=== PATIENT | female | born 1980 | race Caucasian/White ===

== ENCOUNTER → 2019-05-12 14:06 | Outpatient (BNVA) | payer MEDICAID, SELFPAY | PROVIDERS: Family Provider Registered Nurse; PCP Registered Nurse; Visit Provider Obstetrics & Gynecology | DX: O09.92 Supervision of high risk pregnancy, unspecified, second trimester (principal); O09.892 Supervision of other high risk pregnancies, second trimester; O24.112 Pre-existing type 2 diabetes mellitus, in pregnancy, second trimester; O10.012 Pre-existing essential hypertension complicating pregnancy, second trimester; O99.342 Other mental disorders complicating pregnancy, second trimester; O09.522 Supervision of elderly multigravida, second trimester; O99.212 Obesity complicating pregnancy, second trimester; O99.89 Other specified diseases and conditions complicating pregnancy, childbirth and the puerperium; Z28.3 Underimmunization status | CPT/HCPCS: 81000 ==

== ENCOUNTER → 2019-06-09 10:00 | Outpatient (BNVA) | payer MEDICAID, SELFPAY | PROVIDERS: Family Provider Registered Nurse; PCP Registered Nurse; Visit Provider Obstetrics & Gynecology | DX: O24.113 Pre-existing type 2 diabetes mellitus, in pregnancy, third trimester (principal); O09.893 Supervision of other high risk pregnancies, third trimester; Z3A.28 28 weeks gestation of pregnancy | CPT/HCPCS: 83036; 84315; 85027; 86850 ==

== ENCOUNTER → 2019-06-27 09:44 | Outpatient (BNVA) | payer MEDICAID, SELFPAY | PROVIDERS: Family Provider Registered Nurse; PCP Registered Nurse; Referring Provider Obstetrics & Gynecology; Visit Provider Obstetrics & Gynecology | DX: O24.913 Unspecified diabetes mellitus in pregnancy, third trimester (principal); Z36.9 Encounter for antenatal screening, unspecified; Z3A.31 31 weeks gestation of pregnancy | CPT/HCPCS: 76816; 76819 ==

== ENCOUNTER → 2019-06-30 14:22 | Outpatient (BNVA) | payer MEDICAID, SELFPAY | PROVIDERS: Family Provider Registered Nurse; PCP Registered Nurse; Visit Provider Obstetrics & Gynecology | DX: O24.414 Gestational diabetes mellitus in pregnancy, insulin controlled (principal); O16.3 Unspecified maternal hypertension, third trimester; Z3A.31 31 weeks gestation of pregnancy | CPT/HCPCS: 76816; 76819 ==

== ENCOUNTER → 2019-07-04 10:41 | Outpatient (BNVA) | payer MEDICAID, SELFPAY | PROVIDERS: Family Provider Registered Nurse; PCP Registered Nurse; Visit Provider Obstetrics & Gynecology | DX: O09.893 Supervision of other high risk pregnancies, third trimester (principal); O24.414 Gestational diabetes mellitus in pregnancy, insulin controlled; O10.913 Unspecified pre-existing hypertension complicating pregnancy, third trimester; O99.343 Other mental disorders complicating pregnancy, third trimester; O99.213 Obesity complicating pregnancy, third trimester; O09.523 Supervision of elderly multigravida, third trimester; O98.113 Syphilis complicating pregnancy, third trimester; J45.909 Unspecified asthma, uncomplicated; Z3A.31 31 weeks gestation of pregnancy | CPT/HCPCS: 76816; 76819 ==

== ENCOUNTER → 2019-07-07 13:38 | Outpatient (BNVA) | payer MEDICAID, SELFPAY | PROVIDERS: Family Provider Registered Nurse; PCP Registered Nurse; Visit Provider Obstetrics & Gynecology | DX: O09.893 Supervision of other high risk pregnancies, third trimester (principal); O24.913 Unspecified diabetes mellitus in pregnancy, third trimester | CPT/HCPCS: 76816; 76819; 84315 ==

== ENCOUNTER → 2019-07-11 13:50 | Outpatient (BNVA) | payer MEDICAID, SELFPAY | PROVIDERS: Family Provider Registered Nurse; PCP Registered Nurse; Visit Provider Obstetrics & Gynecology | DX: O09.893 Supervision of other high risk pregnancies, third trimester (principal); O24.419 Gestational diabetes mellitus in pregnancy, unspecified control | CPT/HCPCS: 76816; 76819 ==

== ENCOUNTER → 2019-07-14 14:08 | Outpatient (BNVA) | payer MEDICAID, SELFPAY | PROVIDERS: Family Provider Registered Nurse; PCP Registered Nurse; Visit Provider Obstetrics & Gynecology | DX: O09.893 Supervision of other high risk pregnancies, third trimester (principal); O24.119 Pre-existing type 2 diabetes mellitus, in pregnancy, unspecified trimester; E11.9 Type 2 diabetes mellitus without complications | CPT/HCPCS: 76816; 76819 ==

== ENCOUNTER 2019-07-17 01:14 | Observation (INO) | payer MEDICAID, SELFPAY ==
[2019-07-16] VITALS (7 sets, daily range): BP systolic 140–158; BP diastolic 74–86; PULSE 94–102; RESP 18; TEMP 36.6; BMI 38.1
[2019-07-16 22:54] LABS: Urine Appearance Clear (CLEAR); Urine Color Yellow (Yellow); pH Urine 6 (5-7)
[2019-07-16 22:55] LABS: Bacteria Urine 1+; Bilirubin Urine Neg (NEGATIVE); Blood Urine Neg (Negative); Glucose Urine UA Norm (Normal); Ketones Urine Negative (Negative); Leukocyte Esterase Urine Negative (Negative); Nitrate Urine Negative (Negative); Protein Urine Neg (Negative); RBC Urine 0-4 /hpf (0-2); Squamous Epithelial Cell Urine 0-4 (0-5); Urobilinogen Urine Norm (Negative); WBC Urine 0-4 /hpf (0-5)
[2019-07-16] MEDS: acetaminophen 500 mg Tablet 1000 MG PO (23:49)
[2019-07-17] VITALS (23 sets, daily range): BP systolic 108–159; BP diastolic 60–90; PULSE 91–120; RESP 18–20; TEMP 36.6–36.7
[2019-07-17 01:18] LABS: Basophils % 0.2 %; Eosinophils # 0.2 10^3/uL (0.0-0.8); Eosinophils % 1.1 %; Hematocrit 36.9 % (37.0-47.0); Hemoglobin 12.5 g/dL (11.5-15.3); Lymphocytes # 4.1 10^3/uL (0.8-4.8); Mean Corpuscular HGB Conc 33.9 g/dL (30.0-36.0); Mean Corpuscular Volume 88.7 fL (81-99); Mean Platelet Volume 11.4 fL (7.4-10.4); Monocytes # 0.6 10^3/uL (0.2-0.9); Monocytes % 4.4 %; Neutrophils # 9.2 10^3/uL (1.8-7.7); Neutrophils % 64.7 %; Nucleated Red Blood Cells % 0 %; Platelet Count 207 10^3/cmm (130-400); Red Blood Count 4.16 10^6/uL (4.1-5.3); Red Cell Distribution Width 12.7 % (12.1-15.1); White Blood Count 14.2 10^3/uL (4.0-10.0)
[2019-07-17 01:22] LABS: Urine Creatinine 115 mg/dL (28-217); Urine Protein Random 19 mg/dL
[2019-07-17 01:31] LABS: Alanine Aminotransferase 17 U/L (0-33); Albumin Level 3.2 g/dL (3.5-5.2); Alkaline Phosphatase 166 IU/L (35-105); Anion Gap 12.9 (5-19); Aspartate Amino Transferase 16 U/L (0-32); Blood Urea Nitrogen 12 mg/dL (6-20); Calcium 9.5 mg/dL (8.5-10.5); Carbon Dioxide 24 mmol/L (22-29); Chloride 103 mmol/L (98-107); Globulin 3.9 g/dL (1.3-4.6); Glomerular Filtration Rate 112.5 mL/min (90-130); Glucose 125 mg/dL (65-115); Osmolality Calculated 280 mOsm/kg (285-295); Potassium 3.9 mmol/L (3.5-5.1); Sodium 136 mmol/L (136-145); Total Bilirubin 0.2 mg/dL (0.15-1.2); Total Protein 7.1 g/dL (6.6-8.7); Uric Acid 5.1 mg/dL (2.4-5.7)
[2019-07-17 01:34] LABS: UPRO/UCREAT Ratio 0.17 mg/mg CR
--- NOTE | 2019-07-17 08:20 | US_ITS ---
WS: [id number] US OB lmt w/ BPP wo NST REASON FOR EXAM: nonreactive tracing FINDINGS: heart rate was 1 33 bpm . Breech presentation. Fundal placenta grade 2 Amniotic fluid indices 9.75 respiration satisfactory. Biophysical profile 12/08 US/US OB lmt w/ BPP wo NST IMPRESSION: Biophysical profile 12/08 heart rate 133 beats for minute.
== END 2019-07-17 09:22 | disposition home or self-care (01) ==
LOC: OBGYN 08:53 → OPOB 14:24
PROVIDERS: Admitting Provider Obstetrics & Gynecology; Family Provider Registered Nurse; PCP Registered Nurse; Visit Provider Obstetrics & Gynecology
DX: O26.899 Other specified pregnancy related conditions, unspecified trimester (principal); Z3A.00 Weeks of gestation of pregnancy not specified; M54.9 Dorsalgia, unspecified
CPT/HCPCS: 36415; 76815; 76819; 80053; 81001; 82570; 84156; 84550; 85025; 99211; G0378

== ENCOUNTER → 2019-07-18 14:25 | Outpatient (BNVA) | payer MEDICAID, SELFPAY | PROVIDERS: Family Provider Registered Nurse; PCP Registered Nurse; Visit Provider Obstetrics & Gynecology | DX: Z01.89 Encounter for other specified special examinations (principal) | CPT/HCPCS: 84315 ==

== ENCOUNTER 2019-07-19 12:53 | Emergency (ER) | payer MEDICAID, SELFPAY ==
[2019-07-19 12:55] VITALS: BP 180/100; PULSE 105; RESP 16; TEMP 36.7; O2SAT 96; BMI 47.4
--- NOTE | 2019-07-19 12:57 | CT_ITS ---
WS: [id number] CT HEAD TECHNIQUE: Noncontrast CT of the head obtained from the skullbase to the vertex. CLINICAL INFORMATION: head injury COMPARISON: None. DLP: 1776.[address] scans at [facility] use at least one of these dose optimization techniques: automat ed exposure control; mA and/or kV adjustment per patient size (includes targeted exams where dose is matched to clinical indication); or iterative reconstruction. FINDINGS: No evidence of intracranial hemorrhage or mass effect. Ventricular system and basal cisterns are franco nt. No extra-axial fluid collections. No evidence of mass or mass effect. Normal velasquez-white different iation. Soft tissue edema overlying the frontal calvarium. No visualized fractures. Paranasal sinuses and mastoid air cells are well aerated. .Normal visualized soft tissues. Incidental slightly low-lying cerebral tonsils. Notified Geneva Langford MD at 07/19/2019 1:[address]/CT head wo con* [id number] IMPRESSION: 1. No evidence of intracranial hemorrhage or mass effect. 2. Soft tissue edema overlying the frontal calvarium. 3. No acute intracranial findings.
--- NOTE | 2019-07-19 13:02 | W.ED.FALL ---
HPI - Fall General: Chief Complaint: Head Injury Stated Complaint: Fall, head pain Source: patient Mode of arrival: ambulatory Limitations: no limitations History of Present Illness: HPI Narrative: Eliana is a 39-year-old female that is currently 36 weeks . Patient states she fell onto concrete at the back of her head and had a loss of consciousness. She has had a headache since then. Patient denies any abdominal pain denies any vaginal bleeding. She is quite hypertensive here and states she was hypertensive at her last OB meeting. She denies any abdominal pain. MD complaint: fall Onset (ago): minute(s) Fall from: standing Place fall occurred: home Loss of consciousness: Yes Associated symptoms-after fall: Reports headache(s); Denies abdominal pain, chest pain or neck pain Review of Systems Const: Denies: fever, chills, body aches or change in appetite Eyes: Denies: blurry vision or eye discomfort ENMT: Denies: throat pain or dental pain Card: Denies: chest pain Resp: Denies: shortness of breath GI: Denies: abdominal pain, nausea, vomiting or diarrhea : Denies: painful urination Musc: Denies: neck pain or back pain Skin/Breast: Denies: rash Neuro: Reports: headache Psych: Denies: depression Jose Manuel/Lymph: Denies: easy bruising All/Imm: Denies: hives PFSH ED PFSH: Medical History Asthma Blood type A- 02/20/2019: Blood type: A NEGATIVE. History of migraine headaches History of syphilis (~08/2016) Diagnosed and treated for syphilis in August 2016. Reports having a low level RPR since that time. Being followed by Health Department. Hyperlipidemia Hypertension Reports being diagnosed with hypertension. 01/18/2019: Reports has not been taking medications. Had previously been taking lisinopril 20 mg daily and metoprolol 50 mg twice a day. Obesity, morbid, BMI 40.0-49.9 Rubella non-immune status, antepartum Type 2 diabetes mellitus with diabetic neuropathy Surgical History S/P cholecystectomy (~1999) Laparoscopic. Performed in [place], [place]. Age 19 S/P dilation and curettage (12/01/15) Diagnosis: Abnormal endometrial lining. Performed by Dr. Lechuga at [facility] in [place], [place]. Pathology: chronic endometritis S/P T&A (status post tonsillectomy and adenoidectomy) (~1986) Performed in [place], [place]. Age 6 Status post surgery (~1985) Reattachment of amputated right fourth finger. Performed in [place], [place]. Age 5. Family History Mother Hypertension Grandmother Hypertension maternal Diabetes Heart disease Stroke Maternal great Grandfather Diabetes maternal Heart disease Hypercholesteremia Stroke Social History Smoking and tobacco status: former smoker Alcohol intake: current Alcohol intake frequency: holidays/special occasions only Female Reproductive History: Para: 1 Spontaneous abortions: Yes (1) Physical Exam Const: COMMON NORMALS: no apparent distress, oriented x3 and healthy appearing HENMT: COMMON NORMALS: normocephalic and head/scalp atraumatic HEAD & SCALP: normocephalic and atraumatic Eye: COMMON NORMALS: PERRL and EOMs intact bilaterally PUPIL: Yes PERRL Neck/C-Spine: COMMON NORMALS: full ROM and supple Chest: COMMONS NORMALS: inspection of chest normal and palpation of chest normal Resp: COMMON NORMALS: normal respiratory effort, no retractions, no use of accessory muscles and clear to auscultation bilaterally AUSCULTATION: clear to auscultation bilaterally Cardio: COMMON NORMALS: regular rate, regular rhythm and no murmurs RATE: regular rate RHYTHM: regular rhythm GI: COMMON NORMALS: normal to inspection, nondistended, normoactive bowel sounds, soft to palpation, non-tender and no masses PALPATION: Yes soft OTHER: gravid uterus Extremity: COMMON NORMALS: normal to inspection and full ROM Neuro: COMMON NORMALS: oriented x3, moves all extremities and no focal motor deficits Psych: COMMON NORMALS: mental status grossly normal, thought process normal and cooperative THOUGHT PROCESS: normal thought process Skin: COMMON NORMALS: no rashes or lesions noted and no wounds GENERAL SKIN EXAM: no rashes or lesions noted Course Vital Signs: Vital signs: Vital Signs Temperature 98.1 F 07/19/19 12:55 Pulse Rate 101 H 07/19/19 13:52 Respiratory Rate 18 07/19/19 13:52 Blood Pressure 156/87 07/19/19 13:52 Pulse Oximetry 98 07/19/19 13:52 MDM - Fall MDM Narrative: Medical decision making narrative: Patient presents here with a closed head injury from a fall. Patient's head CT here is negative. Patient is quite hypertensive and worried about preeclampsia as she is 36 weeks . We will discharge her to labor and delivery for further evaluation. Lab Data: Labs: Lab Results 07/19/19 07/19/19 07/19/19 Range/Units 13:22 13:29 13:29 WBC 14.2 H (4.0-10.0) 10^3/ uL RBC 4.27 (4.1-5.3) 10^6/u L Hgb 12.8 (11.5-15.3) g/dL Hct 37.5 (37.0-47.0) % MCV 87.8 (81-99) fL MCH 30.0 (28.0-34.0) pg MCHC 34.1 (30.0-36.0) g/dL RDW 12.7 (12.1-15.1) % Plt Count 201 (130-400) 10^3/c mm MPV 10.9 H (7.4-10.4) fL Neut % (Auto) 71.6 % Lymph % (Auto) 23.6 % [place] % (Auto) 3.3 % Eos % (Auto) 0.8 % Baso % (Auto) 0.2 % Neut # (Auto) 10.2 H (1.8-7.7) 10^3/u L Lymph # (Auto) 3.4 (0.8-4.8) 10^3/u L [place] # (Auto) 0.5 (0.2-0.9) 10^3/u L Eos # (Auto) 0.1 (0.0-0.8) 10^3/u L Baso # (Auto) 0.0 (0.0-0.1) 10^3/u L Nucleated RBC % (a uto) 0 % Nucleated RBCs # 0.0 /100WBC PT 12.60 (10.5-13.3) SECO NDS INR 0.92 (0.8-1.2) Sodium (136-145) mmol/L Potassium (3.5-5.1) mmol/L Chloride (98-107) mmol/L Carbon Dioxide (22-29) mmol/L Anion Gap (5-19) BUN (6-20) mg/dL Creatinine (0.5-0.9) mg/dL GFR Calculation (90-130) mL/min Glucose (65-115) mg/dL Calculated Osmolal ity (285-295) mOsm/k g Calcium (8.5-10.5) mg/dL Total Bilirubin (0.15-1.2) mg/dL AST (0-32) U/L ALT (0-33) U/L Alkaline Phosphata se (35-105) IU/L Total Protein (6.6-8.7) g/dL Albumin (3.5-5.2) g/dL Globulin (1.3-4.6) g/dL Urine Color Yellow (Yellow) Urine Appearance Clear (CLEAR) Urine pH 5 (5-7) Ur Specific Gravit y 1.015 (1.005-1.030) Urine Protein Neg (Negative) Urine Glucose (UA) Norm (Normal) Urine Ketones Negative (Negative) Urine Blood Neg (Negative) Urine Nitrate Negative (Negative) Urine Bilirubin Neg (NEGATIVE) Urine Urobilinogen Norm (Negative) mg/dL Ur Leukocyte Reena ase Negative (Negative) 07/19/19 Range/Units 13:29 WBC (4.0-10.0) 10^3/ uL RBC (4.1-5.3) 10^6/u L Hgb (11.5-15.3) g/dL Hct (37.0-47.0) % MCV (81-99) fL MCH (28.0-34.0) pg MCHC (30.0-36.0) g/dL RDW (12.1-15.1) % Plt Count (130-400) 10^3/c mm MPV (7.4-10.4) fL Neut % (Auto) % Lymph % (Auto) % [place] % (Auto) % Eos % (Auto) % Baso % (Auto) % Neut # (Auto) (1.8-7.7) 10^3/u L Lymph # (Auto) (0.8-4.8) 10^3/u L [place] # (Auto) (0.2-0.9) 10^3/u L Eos # (Auto) (0.0-0.8) 10^3/u L Baso # (Auto) (0.0-0.1) 10^3/u L Nucleated RBC % (a uto) % Nucleated RBCs # /100WBC PT (10.5-13.3) SECO NDS INR (0.8-1.2) Sodium 135 L (136-145) mmol/L Potassium 4.3 (3.5-5.1) mmol/L Chloride 104 (98-107) mmol/L Carbon Dioxide 21 L (22-29) mmol/L Anion Gap 14.3 (5-19) BUN 11 (6-20) mg/dL Creatinine 0.5 (0.5-0.9) mg/dL GFR Calculation 138.8 H (90-130) mL/min Glucose 144 H (65-115) mg/dL Calculated Osmolal ity 279 L (285-295) mOsm/k g Calcium 9.6 (8.5-10.5) mg/dL Total Bilirubin 0.2 (0.15-1.2) mg/dL AST 16 (0-32) U/L ALT 12 (0-33) U/L Alkaline Phosphata se 174 H (35-105) IU/L Total Protein 7.1 (6.6-8.7) g/dL Albumin 3.0 L (3.5-5.2) g/dL Globulin 4.1 (1.3-4.6) g/dL Urine Color (Yellow) Urine Appearance (CLEAR) Urine pH (5-7) Ur Specific Gravit y (1.005-1.030) Urine Protein (Negative) Urine Glucose (UA) (Normal) Urine Ketones (Negative) Urine Blood (Negative) Urine Nitrate (Negative) Urine Bilirubin (NEGATIVE) Urine Urobilinogen (Negative) mg/dL Ur Leukocyte Reena ase (Negative) Imaging Data^: CT Head: Attestation: I personally reviewed and interpreted this imaging study as follows: Radiologist's impression: no acute abnormality Discharge Plan Discharge Patient Disposition: Home, Self-Care Clinical Impression: CHI (closed head injury) Qualifiers: Encounter type: initial encounter Qualified Code(s): S09.90XA - Unspecified injury of head, initial encounter Hypertension affecting Qualifiers: Trimester: third trimester Qualified Code(s): O16.3 - Unspecified maternal hypertension, third trimester Condition: Stable Prescriptions: No Action (DME) lancets [Ultra Thin Lancets] 28 gauge misc See Rx Instructions .ROUTE .MEDSUPPLY Qty: 25 RF: 0 prenat.vits,gely,kcq-mfvf-aquch Tablet 1 tab PO ONCE RF: 0 aspirin [Adult Low Dose Aspirin] 81 mg tablet,delayed release (DR/EC) 81 mg PO DAILY RF: 0 (DME) insulin syringes (disposable) 1 mL syringe See Rx Instructions .ROUTE .MEDSUPPLY Qty: 500 RF: 0 (DME) blood sugar diagnostic Strip See Rx Instructions .ROUTE .MEDSUPPLY Qty: 10 RF: 0 (DME) Blood Glucose Test Strip See Rx Instructions .ROUTE .MEDSUPPLY Qty: 10 RF: 0 Levemir U-100 Insulin 100 unit/mL solution 195 unit SUBCUT BID RF: 0 insulin lispro [Humalog U-100 Insulin] 100 unit/mL solution 55 unit SUBCUT TID RF: 0 cyclobenzaprine 10 mg tablet 10 mg PO TID PRN (Reason: MUSCLE SPASMS) RF: 0 labetalol 100 mg tablet 100 mg PO BID Qty: 60 RF: 1 calcium carbonate-vitamin D3 600 mg(1,500mg) -200 unit tablet 1 tab PO DAILY RF: 0 buspirone 5 mg tablet 5 mg PO BID RF: 0 sertraline 25 mg tablet 25 mg PO DAILY RF: 0 Discharge Orders: Discharge Order (Routine); Ordered 07/19/19 Ordered By: Geneva Langford Referrals: Reji Malloy FNP [Primary Care Provider] - Discharge Diet: Advance as tolerated Discharge Activity: Resume usual activity Patient Instructions: Minor Head Injury (ED) Discharge Date/Time: 07/19/19 13:56 Coding Level of Care Code ED Insect Control Aide for Mario Fwd Exam Comprehensive
[2019-07-19 13:05] VITALS: BP 162/83; RESP 18; O2SAT 99
[2019-07-19 13:30] LABS: Add Urine Microscopic? NO
[2019-07-19] MEDS: hyDRALAzine 20 mg/mL INJ 1 mL 10 MG IVP (13:30)
[2019-07-19 13:31] VITALS: BP 166/116; PULSE 105; RESP 18; O2SAT 97
[2019-07-19 13:34] LABS: Basophils % 0.2 %; Eosinophils # 0.1 10^3/uL (0.0-0.8); Eosinophils % 0.8 %; Hematocrit 37.5 % (37.0-47.0); Hemoglobin 12.8 g/dL (11.5-15.3); Lymphocytes # 3.4 10^3/uL (0.8-4.8); Lymphocytes % 23.6 %; Mean Corpuscular HGB Conc 34.1 g/dL (30.0-36.0); Mean Corpuscular Volume 87.8 fL (81-99); Mean Platelet Volume 10.9 fL (7.4-10.4); Monocytes # 0.5 10^3/uL (0.2-0.9); Monocytes % 3.3 %; Neutrophils # 10.2 10^3/uL (1.8-7.7); Neutrophils % 71.6 %; Nucleated Red Blood Cells % 0 %; Platelet Count 201 10^3/cmm (130-400); Red Blood Count 4.27 10^6/uL (4.1-5.3); Red Cell Distribution Width 12.7 % (12.1-15.1); White Blood Count 14.2 10^3/uL (4.0-10.0)
[2019-07-19 13:35] LABS: Glucose Urine UA Norm (Normal); Ketones Urine Negative (Negative); Protein Urine Neg (Negative); Specific Gravity, Urine 1.015 (1.005-1.030); Urine Appearance Clear (CLEAR); Urine Color Yellow (Yellow); pH Urine 5 (5-7)
[2019-07-19 13:36] LABS: Bilirubin Urine Neg (NEGATIVE); Blood Urine Neg (Negative); Leukocyte Esterase Urine Negative (Negative); Nitrate Urine Negative (Negative); Urobilinogen Urine Norm (Negative)
[2019-07-19 13:44] LABS: INR 0.92 (0.8-1.2)
[2019-07-19 13:51] LABS: Alanine Aminotransferase 12 U/L (0-33); Alkaline Phosphatase 174 IU/L (35-105); Anion Gap 14.3 (5-19); Aspartate Amino Transferase 16 U/L (0-32); Blood Urea Nitrogen 11 mg/dL (6-20); Calcium 9.6 mg/dL (8.5-10.5); Carbon Dioxide 21 mmol/L (22-29); Chloride 104 mmol/L (98-107); Globulin 4.1 g/dL (1.3-4.6); Glomerular Filtration Rate 138.8 mL/min (90-130); Glucose 144 mg/dL (65-115); Osmolality Calculated 279 mOsm/kg (285-295); Potassium 4.3 mmol/L (3.5-5.1); Sodium 135 mmol/L (136-145); Total Bilirubin 0.2 mg/dL (0.15-1.2); Total Protein 7.1 g/dL (6.6-8.7)
[2019-07-19 13:52] VITALS: BP 156/87; PULSE 101; RESP 18; O2SAT 98
[2019-07-19 14:26] LABS: Glucose Point of Care 134 mg/dL (70-110)
== END 2019-07-19 13:56 | disposition home or self-care (01) ==
PROVIDERS: Emergency Provider Emergency Medicine; Family Provider Registered Nurse; PCP Registered Nurse
DX: O9A.213 Injury, poisoning and certain other consequences of external causes complicating pregnancy, third trimester (principal); S09.90XA Unspecified injury of head, initial encounter; O10.913 Unspecified pre-existing hypertension complicating pregnancy, third trimester; O24.113 Pre-existing type 2 diabetes mellitus, in pregnancy, third trimester; E11.40 Type 2 diabetes mellitus with diabetic neuropathy, unspecified; O99.89 Other specified diseases and conditions complicating pregnancy, childbirth and the puerperium; J45.909 Unspecified asthma, uncomplicated; E78.5 Hyperlipidemia, unspecified; Z79.4 Long term (current) use of insulin; Z3A.36 36 weeks gestation of pregnancy; Z87.891 Personal history of nicotine dependence; W19.XXXA Unspecified fall, initial encounter; Y92.009 Unspecified place in unspecified non-institutional (private) residence as the place of occurrence of the external cause
CPT/HCPCS: 12345; 36416; 70450; 80053; 81003; 82962; 85025; 85610; 96374; 96375; 99282; 99283; J0360

== ENCOUNTER 2019-07-19 14:00 | Outpatient (CLI) | payer MEDICAID, SELFPAY ==
[2019-07-19] VITALS (57 sets, daily range): BP systolic 0–182; BP diastolic 0–107; PULSE 100–124; RESP 20; TEMP 36.6–36.8; O2SAT 94–98; BMI 47.4
[2019-07-19 17:02] LABS: Urine Creatinine 48 mg/dL (28-217); Urine Protein Random 15 mg/dL
[2019-07-19 17:04] LABS: UPRO/UCREAT Ratio 0.31 mg/mg CR
--- NOTE | 2019-07-19 19:43 | P.PN_ITS ---
Subjective Subjective: Interval history: 39-year-old female with an estimated gestational age at 33 weeks and 4 days with a history of diabetes type II on chronic hypertension. First feeling fine. Vitals/I&O/Wt Last Vital Signs Pulse 110 H 07/19/19 19:36 BP 175/94 07/19/19 19:36 Weight last 48 hrs Weight 129.274 kg Physical Exam Narrative: EXAM NARRATIVE: GA: Alert and oriented ?3. Lungs: Clear to auscultation bilaterally. Heart: Regular rhythm and rate. Abdomen: Gravid, fundal height Greater than dates, nontender. FIELD SALES CONSULTANT: SVE; dilation: 0 cm, effacement: 0 %, station: -5, presentation: Vertex, membranes: Intact. Extremities: no edema, no cyanosis, no calves pain. heart tracing: Basal rate: 140s bpm, Variability: Moderate, Accelerations: Present, Decelerations: Absent, Contractions: No contractions. Data Other Labs: Laboratory Tests 07/19/19 07/19/19 07/19/19 13:22 13:29 13:29 WBC 14.2 H Hgb 12.8 Hct 37.5 Plt Count 201 Glucose 144 H AST 16 ALT 12 Alkaline Phosphatase 174 H U Random Total Protein 15 Urine Creatinine 48 Protein/Creatinin Ratio 0.31 KB % Cells 07/19/19 15:51 WBC Hgb Hct Plt Count Glucose AST ALT Alkaline Phosphatase U Random Total Protein Urine Creatinine Protein/Creatinin Ratio KB % Cells 0.00 A&P Assessment and plan (1) Pre-eclampsia or eclampsia superimposed on pre-existing hypertension, antepartum: 39-year-old female with an estimated gestational age at 33 weeks and 4 days with a history of diabetes type II on chronic hypertension. Initially came to labor and delivery because she was not feeling well and fell down. During observation blood pressure increased to severe preeclampsia levels, Urine protein creatinine ratio is 0.31. Admission sulfate was initiated for seizure prophylaxis, Corticosteroids was initiated for lung maturation. The patient is seeing MFM at [facility]. Due to the patient's gestational age recommendation for transfer to a higher level of care was made to the patient and she agreed. Labor and Delivery from [facility] Dr. Gunter accepted the patient. Status: Acute (2) Pre-existing essential hypertension complicating , third trimester: Status: Acute Code(s): O10.013 - Pre-existing essential hypertension complicating , third trimester (3) Diabetes in : Patient using 195 units of Levemir twice a day and Humulin N 55 units 3 times Status: Acute Qualifiers: Diabetes in type: pre-existing, type 2 Trimester: third trimester Qualified Code(s): O24.113 - Pre-existing type 2 diabetes mellitus, in , third trimester Code(s): O24.919 - Unspecified diabetes mellitus in , unspecified trimester Attestations Medical Necessity Statement*: In my professional opinion per admitting diagnosis. Coding Level of Care Code Acute Health Services Information Specialist for [facility] Fwd Diagnoses Pre-eclampsia or eclampsia superimposed on pre-existing hypertension, antepartum Pre-existing essential hypertension complicating , third trimester O10.013 Diabetes in O24.113 Diabetes in type: pre-existing, type 2 Trimester: third trimester
[2019-07-19] MEDS: magnesium sulfate premix 4 GM/100 ML PREMIX IV (19:51)
[2019-07-19] MEDS: magnesium sulfate premix 20 GM/500 ML BAG IV (19:51)
[2019-07-19] MEDS: magnesium sulfate premix 2 GM/50 ML PIGGYBACK IV (19:52)
[2019-07-19] MEDS: betamethasone susp 6 mg/mL 5 mL 12 MG IM ×2 (19:52→19:57)
[2019-07-19] MEDS: lactated ringers 1,000 ML 125 ML IV (19:54)
== END 2019-07-19 21:30 | disposition home or self-care (01) ==
LOC: OPOB 14:56 → OBGYN 07-31 09:11
PROVIDERS: Family Provider Registered Nurse; PCP Registered Nurse; Visit Provider Obstetrics & Gynecology
DX: O14.93 Unspecified pre-eclampsia, third trimester (principal); O10.013 Pre-existing essential hypertension complicating pregnancy, third trimester; O24.113 Pre-existing type 2 diabetes mellitus, in pregnancy, third trimester; Z3A.33 33 weeks gestation of pregnancy
CPT/HCPCS: 12345; 36415; 51702; 59025; 82570; 84156; 85460; 96372; 99211; J0702; J3475

== ENCOUNTER → 2019-10-17 11:20 | Outpatient (BNVA) | payer MEDICAID, SELFPAY | PROVIDERS: Family Provider Registered Nurse; PCP Registered Nurse; Visit Provider Registered Nurse | DX: E11.649 Type 2 diabetes mellitus with hypoglycemia without coma (principal); Z79.4 Long term (current) use of insulin | CPT/HCPCS: 83036 ==

== ENCOUNTER 2019-11-18 12:30 | Emergency (ER) | payer MEDICAID, SELFPAY ==
[2019-11-18 12:31] VITALS: BP 117/79; PULSE 98; RESP 18; TEMP 36.5; O2SAT 96
--- NOTE | 2019-11-18 13:17 | USR_ITS ---
PROCEDURE INFORMATION: Exam: US Pelvis, Transvaginal Exam date and time: 11/18/2019 2:43 PM Age: 39 years old Clinical indication: Other: Vaginal bleeding; Additional info: Vaginal bleeding 3 months post delivery TECHNIQUE: Imaging protocol: Real-time transvaginal pelvic ultrasound with image documentation. Transvaginal imaging was used for better evaluation of the endometrium and adnexa. COM[place]ISON: [place] [id number] 10/20/2018 2:12 PM FINDINGS: Uterus/cervix: The uterus is unremarkable measuring 4.7 x 6.1 x 3.2 cm. Endometrial stripe measures 7 mm. No uterine fibroids. The cervix is unremarkable. Right adnexa: The right ovary is not visualized. Left adnexa: The left ovary is not visualized. Free fluid: No fluid in the pelvis. Other findings: The right and left adnexa are unremarkable. The right and left adnexa as visualized are unremarkable. There is some bowel gas artifact. US/US pelvis lmt w transvag IMPRESSION: Unremarkable exam. Unremarkable appearance of the uterus. Bowel gas artifact is obscuring both ovaries. Both adnexa are unremarkable.
[2019-11-18 13:42] LABS: Glucose Urine UA 4+ (Normal); Protein Urine 1+ (Negative); Specific Gravity, Urine 1.015 (1.005-1.030); Urine Appearance Bloody (CLEAR); Urine Color Red (Yellow); pH Urine 5 (5-7)
[2019-11-18 13:43] VITALS: O2SAT 95
[2019-11-18 13:43] LABS: Add Urine Microscopic? YES; Bilirubin Urine Neg (NEGATIVE); Blood Urine 3+ (Negative); Ketones Urine Negative (Negative); Nitrate Urine Negative (Negative); Urobilinogen Urine Norm (Negative)
[2019-11-18 13:44] LABS: RBC Urine TOO NUMEROUS TO CNT /hpf (0-2)
[2019-11-18 13:46] LABS: Bacteria Urine 1+; Squamous Epithelial Cell Urine 0-4 (0-5); WBC Urine 0-4 /hpf (0-5)
--- NOTE | 2019-11-18 13:46 | ED_ITS ---
HPI - Female Genitourinary General: Chief complaint: Urogenital-Female Stated complaint: bleeding Time Seen by Provider: 11/18/19 13:25 History of Present Illness: HPI Narrative: 39-year-old female presents complaining of irregular periods been very heavy last couple of days she was recently started on Depo-Provera now states having heavy bleeding for last couple weeks she anticipate bleeding stopping completely when she was on the apple. She just delivered a baby in July of this year and periods have been very irregular and now had begun to be very heavy. She denies dysuria urgency or frequency. She denies any abdominal pain or chest pain. Refers most of her pain to the lower pelvic area has describes a crampy-like pain. She denies any dysuria urgency or frequency or vaginal discharge. MD elicited complaint: vaginal bleeding Pertinent past history: tubal ligation and diabetes Onset (ago): hour(s) Location of symptoms: suprapubic Severity: moderate Female Urogenital Radiation: Non-Radiating Quality of pain: cramping and dull Consistency: intermittent Vaginal discharge: none and yellow Vaginal bleeding: heavy and clots Associated symptoms: Deny no associated symptoms, abdominal pain, nausea, seizures, syncope or other Patient : No Review of Systems Const: Denies: fever(s), chills, body aches, change in appetite, fatigue or malaise ENMT: Denies: throat pain, ear or mastoid pain, nasal discharge or nasal congestion Card: Denies: syncope Resp: Denies: dyspnea, productive cough or non-productive cough GI: Denies: abdominal pain, nausea, vomiting, hematemesis, coffee ground emesis, diarrhea, constipation, bloating, hematochezia or melena : Denies: flank pain, difficulty voiding, dysuria, urinary frequency or urinary urgency Skin/Breast: Denies: rash or pruritus [facility] ED PFSH: Medical History (Updated 11/18/19 @ 14:42 by Homer Hall DO) Asthma Blood type A- 02/20/2019: Blood type: A NEGATIVE. Depression History of migraine headaches History of syphilis (~08/2016) Diagnosed and treated for syphilis in August 2016. Reports having a low level RPR since that time. Being followed by Health Department. Hyperlipidemia Hypertension Reports being diagnosed with hypertension. 01/18/2019: Reports has not been taking medications. Had previously been taking lisinopril 20 mg daily and metoprolol 50 mg twice a day. Obesity, morbid, BMI 40.0-49.9 Rubella non-immune status, antepartum Type 2 diabetes mellitus Type 2 diabetes mellitus with diabetic neuropathy Surgical History (Updated 11/09/19 @ 15:05 by Susan Whalen MD) S/P section 07/25/2019- [place], [place] S/P cholecystectomy (~1999) Laparoscopic. Performed in [place], [place]. Age 19 S/P dilation and curettage (12/01/15) Diagnosis: Abnormal endometrial lining. Performed by Dr. Lechuga at [facility] in [place], [place]. Pathology: chronic endometritis S/P T&A (status post tonsillectomy and adenoidectomy) (~1986) Performed in [place], [place]. Age 6 S/P tubal ligation 07/05/2019- performed with section at [facility] Status post surgery (~1985) Reattachment of amputated right fourth finger. Performed in [place], [place]. Age 5. Family History Mother Hypertension Grandmother Hypertension maternal Diabetes Heart disease Stroke Maternal great Grandfather Diabetes maternal Heart disease Hypercholesteremia Stroke Social History Smoking and tobacco status: former smoker Quit status (tobacco): has quit using tobacco Alcohol intake: current Alcohol intake frequency: holidays/special occasions only Alcohol type: wine Female Reproductive History: Para: 1 Spontaneous abortions: Yes (1) Physical Exam Const: COMMON NORMALS: no acute distress GENERAL APPEARANCE: cooperative and comfortable ORIENTATION/CONSCIOUSNESS: Yes awake, Yes oriented to person, Yes oriented to place and Yes oriented to time HENMT: COMMON NORMALS: normocephalic, atraumatic, hearing grossly normal bilaterally, external ears normal, EAC's normal, TM's normal bilaterally, Normal nasal mucous membranes and turbinates present, moist oral mucous membranes and oropharynx normal HEAD & SCALP: normocephalic and atraumatic NOSE: Normal nasal mucous membranes and turbinates present EXTERNAL EAR: Yes external ears normal EXTERNAL AUDITORY CANAL: EAC's normal TYMPANIC MEMBRANE: TM's normal bilaterally Eye: COMMON NORMALS: Equal, round and reactive pupils present, EOMs intact bilaterally, conjunctivae normal and no scleral icterus CONJUNCTIVA: Yes conjunctivae normal PUPIL: Yes Equal, round and reactive pupils present Neck/C-Spine: COMMON NORMALS: full ROM, no lymphadenopathy, supple and no JVD Lymph: LYMPHATIC: no lymphadenopathy noted and no lymphedema noted Resp: COMMON NORMALS: normal respiratory effort, No retractions, No use of accessory muscles and clear to auscultation bilaterally AUSCULTATION: clear to auscultation bilaterally Cardio: COMMON NORMALS: no JVD, regular rate, regular rhythm and No murmurs pr esent (Cardio) RATE: regular rate RHYTHM: regular rhythm GI: COMMON NORMALS: Soft to palpation and No hepatosplenomegaly present AUSCULTATION: Yes normoactive bowel sounds PALPATION: Yes Soft to palpation, No Tenderness to palpation present (GI), No Guarding due to palpation present (GI) and Yes No hepatosplenomegaly present Extremity: COMMON NORMALS: normal to inspection, capillary refill normal, no clubbing, cyanosis or edema, no calf tenderness and no pedal edema Neuro: SENSORIUM/ORIENTATION: Yes oriented to person, Yes oriented to place and Yes oriented to time Skin: COMMON NORMALS: no rashes or lesions noted GENERAL SKIN EXAM: no rashes or lesions noted Course Vital Signs: Vital signs: Vital Signs Temperature 97.7 F 11/18/19 12:31 Pulse Rate 93 11/18/19 14:50 Respiratory Rate 18 11/18/19 12:31 Blood Pressure 115/79 11/18/19 14:50 Pulse Oximetry 96 11/18/19 14:50 MDM - Female [facility] Narrative: Medical decision making narrative: We will go and discharge her home with a progesterone withdrawal bleed over 7 days discussed with the patient that this will stop the bleeding but she will have a very significant. At the end of the 7 days. Hopefully this will reset things if she has worsening or change or problems recheck follow-up with her primary care doctor. Lab Data: Labs: Lab Results 11/18/19 11/18/19 Range/Units 12:51 13:51 WBC 12.4 H (4.0-10.0) 10^3/ uL RBC 4.69 (4.1-5.3) 10^6/u L Hgb 13.2 (11.5-15.3) g/dL Hct 40.3 (37.0-47.0) % MCV 85.9 (81-99) fL MCH 28.1 (28.0-34.0) pg MCHC 32.8 (30.0-36.0) g/dL RDW 12.7 (12.1-15.1) % Plt Count 301 (130-400) 10^3/c mm MPV 10.6 H (7.4-10.4) fL Neut % (Auto) 59.0 % Lymph % (Auto) 35.5 % [place] % (Auto) 3.9 % Eos % (Auto) 1.0 % Baso % (Auto) 0.2 % Neut # (Auto) 7.32 (1.8-7.7) 10^3/u L Lymph # (Auto) 4.4 (0.8-4.8) 10^3/u L [place] # (Auto) 0.5 (0.2-0.9) 10^3/u L Eos # (Auto) 0.1 (0.0-0.8) 10^3/u L Baso # (Auto) 0.0 (0.0-0.1) 10^3/u L Nucleated RBC % (a uto) 0 % Nucleated RBCs # 0.0 /100WBC Urine Color Red (Yellow) Urine Appearance Bloody A (CLEAR) Urine pH 5 (5-7) Ur Specific Gravit y 1.015 (1.005-1.030) Urine Protein 1+ H (Negative) Urine Glucose (UA) 4+ H (Normal) Urine Ketones Negative (Negative) Urine Blood 3+ H (Negative) Urine Nitrate Negative (Negative) Urine Bilirubin Neg (NEGATIVE) Urine Urobilinogen Norm (Negative) mg/dL Ur Leukocyte Reena ase Negative (Negative) Urine RBC Too numerous to c nt H (0-2) /hpf Urine WBC 0-4 H (0-5) /hpf Ur Squamous Epith Cells 0-4 H (0-5) Amorphous Sediment Not Reportable Urine Bacteria 1+ H (NONE) Discharge Plan Discharge Patient Disposition: Home, Self-Care Clinical Impression: Menorrhagia Condition: Stable Prescriptions: New medroxyprogesterone 10 mg tablet 10 mg PO DAILY 7 Days Qty: 7 RF: 0 No Action insulin lispro [Humalog U-100 Insulin] 100 unit/mL solution 20 unit SUBCUT TID RF: 0 sertraline [Zoloft] 50 mg tablet 50 mg PO DAILY Qty: 90 RF: 0 Levemir U-100 Insulin 100 unit/mL solution 10 unit SUBCUT BID RF: 0 lisinopril 10 mg tablet 10 mg PO DAILY 30 Days Qty: 30 RF: 2 Depo-Provera 150 mg/mL syringe See Rx Instructions .ROUTE .COMPLEX RF: 0 Discharge Orders: Discharge Order (Routine); Ordered 11/18/19 Ordered By: Homer Hall Referrals: Reji Malloy, [employer] APPLICATIONS ANALYST [Primary Care Provider] - (Patient placed on 7-day course of oral medroxyprogesterone for heavy bleeding) Discharge Diet: Usual diet Discharge Activity: Resume usual activity Discharge Date/Time: 11/18/19 14:50 Coding Level of Care Code ED Overseer Kosher Kitchen for Mario Fwd Exam Comprehensive
[2019-11-18 13:47] LABS: Add Urine Culture? Yes
[2019-11-18 14:11] LABS: Basophils % 0.2 %; Eosinophils # 0.1 10^3/uL (0.0-0.8); Hematocrit 40.3 % (37.0-47.0); Hemoglobin 13.2 g/dL (11.5-15.3); Lymphocytes # 4.4 10^3/uL (0.8-4.8); Lymphocytes % 35.5 %; Mean Corpuscular HGB Conc 32.8 g/dL (30.0-36.0); Mean Corpuscular Hemoglobin 28.1 pg (28.0-34.0); Mean Corpuscular Volume 85.9 fL (81-99); Mean Platelet Volume 10.6 fL (7.4-10.4); Monocytes # 0.5 10^3/uL (0.2-0.9); Monocytes % 3.9 %; Neutrophils # 7.32 10^3/uL (1.8-7.7); Nucleated Red Blood Cells % 0 %; Platelet Count 301 10^3/cmm (130-400); Red Blood Count 4.69 10^6/uL (4.1-5.3); Red Cell Distribution Width 12.7 % (12.1-15.1); White Blood Count 12.4 10^3/uL (4.0-10.0)
[2019-11-18 14:20] VITALS: BP 102/76; PULSE 86; O2SAT 95
[2019-11-18 14:33] LABS: Leukocyte Esterase Urine Negative (Negative)
[2019-11-18 14:50] VITALS: BP 115/79; PULSE 93; O2SAT 96
== END 2019-11-18 14:50 | disposition home or self-care (01) ==
PROVIDERS: Emergency Provider Family Medicine; PCP Registered Nurse
DX: N92.0 Excessive and frequent menstruation with regular cycle (principal); Z79.4 Long term (current) use of insulin; Z87.891 Personal history of nicotine dependence; E78.5 Hyperlipidemia, unspecified; I10 Essential (primary) hypertension; E66.01 Morbid (severe) obesity due to excess calories; E11.40 Type 2 diabetes mellitus with diabetic neuropathy, unspecified
CPT/HCPCS: 12345; 76830; 76857; 81001; 81003; 85025; 87086; 99281; 99283

== ENCOUNTER → 2019-12-15 13:15 | Outpatient (BNVA) | payer MEDICAID, SELFPAY | PROVIDERS: PCP Registered Nurse; Visit Provider Internal Medicine | DX: E11.40 Type 2 diabetes mellitus with diabetic neuropathy, unspecified (principal); E78.5 Hyperlipidemia, unspecified; I10 Essential (primary) hypertension; E11.649 Type 2 diabetes mellitus with hypoglycemia without coma; E66.01 Morbid (severe) obesity due to excess calories | CPT/HCPCS: 99204 ==

== ENCOUNTER → 2020-06-18 10:42 | Outpatient (BNVA) | payer MEDICAID, SELFPAY | PROVIDERS: PCP Family Medicine; Visit Provider Family Medicine | DX: M25.511 Pain in right shoulder (principal) | CPT/HCPCS: 73030 ==

== ENCOUNTER → 2021-01-16 17:39 | Outpatient (BNVA) | payer MEDICAID, SELFPAY | PROVIDERS: PCP Family Medicine; Visit Provider Emergency Medicine | DX: R51.9 Headache, unspecified (principal); M25.512 Pain in left shoulder; R00.0 Tachycardia, unspecified; E11.649 Type 2 diabetes mellitus with hypoglycemia without coma; S49.92XA Unspecified injury of left shoulder and upper arm, initial encounter; W19.XXXA Unspecified fall, initial encounter; Z87.820 Personal history of traumatic brain injury | CPT/HCPCS: 73030; 80053; 83036; 85025 ==

== ENCOUNTER 2021-02-11 09:44 | Outpatient (CLI) | payer MEDICAID, SELFPAY ==
--- NOTE | 2021-02-11 09:54 | CT_ITS ---
WS: [id number] CT HEAD TECHNIQUE: Noncontrast CT of the head obtained from the skullbase to the vertex. CLINICAL INFORMATION: Z87.820 - Personal history of traumatic brain injury COMPARISON: CT July 19, 2019 DLP: 925.[address] scans at [facility] use at least one of these dose optimization techniques: automated e xposure control; mA and/or kV adjustment per patient size (includes targeted exams where dose is matc hed to clinical indication); or iterative reconstruction. FINDINGS: No evidence of intracranial hemorrhage or mass effect. Ventricular system and basal cisterns are franco nt No extra-axial fluid collections. No evidence of mass or mass effect. Normal velasquez-white differenti ation. Paranasal sinuses and mastoid air cells are well aerated. .Normal visualized soft tissues. CT/CT head wo con* [id number] IMPRESSION: 1. No evidence of intracranial hemorrhage or mass effect. 2. Normal velasquez-white differentiation. 3. Paranasal sinuses and mastoid air cells well aerated. 4. No other significant findings.
== END 2021-02-11 09:45 | disposition home or self-care (01) ==
PROVIDERS: PCP Family Medicine; Visit Provider Emergency Medicine
DX: Z87.820 Personal history of traumatic brain injury (principal); R51.9 Headache, unspecified; W19.XXXA Unspecified fall, initial encounter
CPT/HCPCS: 70450

== ENCOUNTER → 2021-03-18 15:00 | Outpatient (BNVA) | payer MEDICAID, SELFPAY | PROVIDERS: PCP Family Medicine; Visit Provider Nurse Practitioner Family | DX: J32.9 Chronic sinusitis, unspecified (principal); R39.9 Unspecified symptoms and signs involving the genitourinary system; E11.40 Type 2 diabetes mellitus with diabetic neuropathy, unspecified | CPT/HCPCS: 81000; 87077; 87086; 87184 ==

== ENCOUNTER → 2021-04-23 15:00 | Outpatient (BNVA) | payer MEDICAID, SELFPAY | PROVIDERS: PCP Family Medicine; Visit Provider Emergency Medicine | DX: R39.9 Unspecified symptoms and signs involving the genitourinary system (principal) | CPT/HCPCS: 81000; 87077; 87086; 87184 ==

== ENCOUNTER 2021-08-29 11:43 | Emergency (ER) | payer MEDICAID, SELFPAY ==
[2021-08-29 11:50] VITALS: BP 123/84; PULSE 103; RESP 18; TEMP 36.4; O2SAT 96; BMI 40.7
--- NOTE | 2021-08-29 11:59 | ECG_ITS ---
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 Measurements Intervals [place] Rate: 97 P: 47 WI: 125 QRS: 5 QRSD: 86 T: 22 QT: 344 QTc: 439 Interpretive Statements SINUS RHYTHM POSSIBLE ANTERIOR MYOCARDIAL INFARCTION , PROBABLY OLD [30 ms Q WAVE IN V3/V4, OR R < 0.2 mV IN V4] Compared to ECG 05/15/2018 10:56:53 Myocardial infarct finding now present Sinus tachycardia no longer present T-wave abnormality no longer present Electronically Signed On 08-29-2021 20:14:50 CDT by Griselda Whitt M.D. [id number]
[2021-08-29 12:25] VITALS: BP 148/99; PULSE 101; RESP 16; O2SAT 96
--- NOTE | 2021-08-29 12:34 | W.ED.DIZZY ---
HPI - Dizziness General: Chief Complaint: Dizziness Stated Complaint: Fell and hit head, Dizziness Time Seen by Provider: 08/29/21 11:55 History of Present Illness: HPI Narrative: Patient said she was dizzy this morning after get up from bowel movement. Said she fell and hit her head against. She does not think she passed out. And she hit the back of her head. She denies any neurologic complaints or does have some soreness back her head. Is able to ambulate. Said she felt dizzy for a while. Associated symptoms: Denies chest pain, chills, headache(s), nausea or vomiting Review of Systems Narrative: Said when she was dizzy this morning after having a bowel movement when she stood up she fell back and hit the side of the tub with her head. Const: Denies: fever(s), chills or body aches Eyes: Denies: eye discomfort ENMT: Denies: throat pain Card: Denies: chest pain Resp: Denies: dyspnea GI: Denies: abdominal pain, nausea or vomiting Skin/Breast: Denies: rash Neuro: Reports: dizziness; Denies: headache(s) Psych: Denies: depression or suicidal ideation [facility] PFSH: Medical History Asthma Blood type A- 02/20/2019: Blood type: A NEGATIVE. Depression Headache History of closed head injury History of migraine headaches History of syphilis (~08/2016) Diagnosed and treated for syphilis in August 2016. Reports having a low level RPR since that time. Being followed by Health Department. Hyperlipidemia Hypertension Obesity, morbid, BMI 40.0-49.9 PTSD (post-traumatic stress disorder) Rubella non-immune status, antepartum Surgical History S/P section 07/25/2019- [facility] [place], [place] S/P cholecystectomy (~1999) Laparoscopic. Performed in [place], [place]. Age 19 S/P dilation and curettage (12/01/15) Diagnosis: Abnormal endometrial lining. Performed by Dr. Lechuga at [facility] in [place], [place]. Pathology: chronic endometritis S/P T&A (status post tonsillectomy and adenoidectomy) (~1986) Performed in [place], [place]. Age 6 S/P tubal ligation 07/05/2019- performed with section at [facility] Status post surgery (~1985) Reattachment of amputated right fourth finger. Performed in [place], [place]. Age 5. Family History Mother Hypertension CHF (congestive heart failure) Grandmother Hypertension maternal Diabetes Heart disease Stroke Maternal great Mitral valve disease Grandfather Diabetes maternal Heart disease Hypercholesteremia Stroke Social History Smoking and tobacco status: former smoker Quit status (tobacco): has quit using tobacco Alcohol intake: current Alcohol intake frequency: holidays/special occasions only Alcohol type: wine Female Reproductive History: Date of last menstrual period: 11/18/19 Para: 1 Spontaneous abortions: Yes (1) Physical Exam Const: COMMON NORMALS: no acute distress, patient oriented x3 and alert HENMT: COMMON NORMALS: normocephalic, external ears normal and TM's normal bilaterally HEAD & SCALP: normocephalic EXTERNAL EAR: Yes external ears normal TYMPANIC MEMBRANE: TM's normal bilaterally Eye: COMMON NORMALS: EOMs intact bilaterally Neck/C-Spine: COMMON NORMALS: no JVD CERVICAL SPINE: Yes cervical ROM normal, No cervical ROM abnormal, No pain with cervical ROM, No Cervical spine tenderness and No Paracervical muscle tenderness Resp: COMMON NORMALS: normal respiratory effort and No use of accessory muscles Cardio: COMMON NORMALS: no JVD GI: INSPECTION: Yes normal to inspection Extremity: COMMON NORMALS: normal to inspection and full ROM Neuro: COMMON NORMALS: patient oriented x3 SENSORIUM/ORIENTATION: Yes alert COORDINATION/BALANCE: [id number] test normal GAIT: Yes Normal gait present MOTOR EXAM: 5/5 motor strength present throughout COORDINATION: [id number] test normal PUPIL EXAM: Normal pupillary reactivity/response: bilateral Psych: COMMON NORMALS: mental status grossly normal Skin: COMMON NORMALS: no rashes or lesions noted GENERAL SKIN EXAM: no rashes or lesions noted Course Vital Signs: Vital signs: Vital Signs Temperature 97.5 F L 08/29/21 11:50 Pulse Rate 108 H 08/29/21 12:52 Respiratory Rate 15 08/29/21 12:52 Blood Pressure 139/97 08/29/21 12:52 Pulse Oximetry 96 08/29/21 12:52 MDM - Dizziness Medical Decision Making Head contusion from fall this morning. Patient without neurological deficits. Patient is diabetic does not have sugar in good control I encouraged her to control her sugar and follow-up with her primary care provider. Lab Data Laboratory Results POC Glucose 381 mg/dL (70-110) H 08/29/21 12:38 Discharge Plan Discharge Patient Disposition: Home Clinical Impression: Contusion of head, Diabetes mellitus type 1.5, managed as type 1 Condition: Stable Prescriptions: No Action albuterol sulfate [ProAir HFA] 90 mcg/actuation HFA aerosol inhaler 2 puff INHALATION Q6H PRN (Reason: shortness of breath or wheezing) Qty: 1 1RF rizatriptan [Maxalt] 10 mg tablet 10 mg PO Q2H PRN (Reason: migraine headache) Qty: 10 2RF Rx Instructions: may repeat 1 dose 2 hrs after 1st dose. take at earliest onset. meclizine 25 mg tablet 25 mg PO TID PRN (Reason: dizziness) Qty: 30 0RF (DME) blood-glucose meter [Blood Glucose Monitoring] Kit See Rx Instructions .ROUTE .MEDSUPPLY Qty: 1 0RF Rx Instructions: Brand/type per insurance coverage (DME) Blood Glucose Test Strip See Rx Instructions .ROUTE .MEDSUPPLY Qty: 50 11RF Rx Instructions: Brand/type to go with meter per insurance coverage (DME) BD Insulin Syringe 1 mL 25 x 1 syringe See Rx Instructions .ROUTE .MEDSUPPLY Qty: 100 12RF Rx Instructions: use to inject insulin up to 8 times daily Tylenol Ex Str Rapid Release 500 mg Tablet 1,000 mg PO Q4H PRN (Reason: Pain) 0RF Depo-Provera 150 mg/mL syringe 150 mg IM Q90D 0RF Discharge Orders: Discharge ED (Routine); Ordered 08/29/21 Ordered By: Matthew Blank Referrals: Susan Whalen MD [Primary Care Provider] - Discharge Diet: Usual diet Discharge Activity: Increase activity as tolerated Patient Instructions: Head Injury (ED) Activity Restrictions/Additional Instructions: Follow-up your primary care provider as needed. You can return here if any worsening symptoms. Monitor blood sugars on a regular basis. Coding Level of Care Code ED Internet Sales Associate for Chg Fwd Exam Comprehensive
[2021-08-29 12:41] LABS: Glucose Point of Care 381 mg/dL (70-110)
--- NOTE | 2021-08-29 12:47 | PC.PHAR ---
pt states she takes care of her own medications-pt states she hasnt taken her insulins for a year-metoprolol succinate 200mg daily written 06/18/20 pt states she is not taking that medication either-pt states she only takes the medications entered
[2021-08-29 12:48] VITALS: BP 139/97; PULSE 108; RESP 16; O2SAT 96
[2021-08-29 12:52] VITALS: BP 139/97; PULSE 108; RESP 15; O2SAT 96
== END 2021-08-29 12:50 | disposition home or self-care (01) ==
PROVIDERS: Emergency Provider Nurse Practitioner Family; PCP Family Medicine
DX: S00.83XA Contusion of other part of head, initial encounter (principal); W18.12XA Fall from or off toilet with subsequent striking against object, initial encounter; E13.65 Other specified diabetes mellitus with hyperglycemia; Z79.4 Long term (current) use of insulin; I10 Essential (primary) hypertension; Z87.891 Personal history of nicotine dependence
CPT/HCPCS: 36416; 82962; 93005; 99283

== ENCOUNTER 2021-08-31 19:18 | Inpatient (IN) | payer MEDICAID, SELFPAY ==
[2021-08-31] VITALS (10 sets, daily range): BP systolic 131–179; BP diastolic 86–107; PULSE 105–142; RESP 15–29; TEMP 36.5; O2SAT 97–100; BMI 39.9
--- NOTE | 2021-08-31 20:32 | CTR_ITS ---
PROCEDURE INFORMATION: Exam: CT Head Without Contrast Exam date and time: 08/31/2021 8:40 PM Age: 41 years old Clinical indication: Injury or trauma; Blunt trauma (contusions or hematomas); Consciousness not specified; Patient HX: Fall two days ago and again today. Increase in dizziness and nausea; Additional info: Headache dizziness TECHNIQUE: Imaging protocol: Computed tomography of the head without contrast. Radiation optimization: All CT scans at this facility use at least one of these dose optimization techniques: automated exposure control; mA and/or kV adjustment per patient size (includes targeted exams where dose is matched to clinical indication); or iterative reconstruction. COMPARISON: CT head wo con* [id number] 02/11/2021 9:57 AM RADIATION DOSE METRICS: Total DLP (mGy-cm): 961.97 FINDINGS: Brain: Normal. No hemorrhage. Unremarkable white matter. No mass effect. Cerebral ventricles: No ventriculomegaly. Paranasal sinuses: Visualized sinuses are unremarkable. No fluid levels. Mastoid air cells: Visualized mastoid air cells are well aerated. Bones/joints: Unremarkable. No acute fracture. Soft tissues: Unremarkable. CT/CT head wo con* [id number] IMPRESSION: No acute intracranial abnormality.
--- NOTE | 2021-08-31 21:02 | W.ED.FALL ---
HPI - Fall General: Chief Complaint: Fall Stated Complaint: FALL Time Seen by Provider: 08/31/21 20:19 Source: patient History of Present Illness: 41-year-old female who fell on Wednesday hitting her head. She notes that she struck her occipital head. She has had a headache since that time. She was evaluated at that point and clinically found not to have a significant injury, although no imaging was done. She notes continued headache over the weekend, with vomiting today. She also had an episode of diarrhea. She has type 2 diabetes, but is insulin-dependent. Blood sugars have been elevated. She is tachycardic today. She notes that she has a history of this, but not this bad. She denies any chest pain. She states that she has been dizzy. Fall from: standing Fall witnessed: no Place fall occurred: home Prolonged down time: unclear Symptoms prior to fall: none Context: other (Unknown) Location of injury: head Associated symptoms-after fall: Reports headache(s), lightheadedness and weakness (Generalized); Denies abdominal pain, chest pain, confusion, neck pain or short of breath Review of Systems Const: Denies: fever(s) ENMT: Denies: throat pain Card: Reports: lightheadedness; Denies: chest pain Resp: Denies: dyspnea, productive cough or non-productive cough GI: Denies: abdominal pain Musc: Denies: neck pain Neuro: Reports: headache(s) and dizziness; Denies: numbness in extremities or confusion PFS ED PFSH: Medical History Asthma Blood type A- 02/20/2019: Blood type: A NEGATIVE. Depression Headache History of closed head injury History of migraine headaches History of syphilis (~08/2016) Diagnosed and treated for syphilis in August 2016. Reports having a low level RPR since that time. Being followed by Health Department. Hyperlipidemia Hypertension Obesity, morbid, BMI 40.0-49.9 PTSD (post-traumatic stress disorder) Rubella non-immune status, antepartum Surgical History S/P section 07/25/2019- [facility] [place] S/P cholecystectomy (~1999) Laparoscopic. Performed in [place], [place]. Age 19 S/P dilation and curettage (12/01/15) Diagnosis: Abnormal endometrial lining. Performed by Dr. Lechuga at [facility] in [place], [place]. Pathology: chronic endometritis S/P T&A (status post tonsillectomy and adenoidectomy) (~1986) Performed in [place], [place]. Age 6 S/P tubal ligation 07/05/2019- performed with section at [facility] Status post surgery (~1985) Reattachment of amputated right fourth finger. Performed in [place], [place]. Age 5. Family History Mother Hypertension CHF (congestive heart failure) Grandmother Hypertension maternal Diabetes Heart disease Stroke Maternal great Mitral valve disease Grandfather Diabetes maternal Heart disease Hypercholesteremia Stroke Social History Smoking and tobacco status: former smoker Quit status (tobacco): has quit using tobacco Alcohol intake: current Alcohol intake frequency: holidays/special occasions only Alcohol type: wine Female Reproductive History: Date of last menstrual period: 11/18/19 Para: 1 Spontaneous abortions: Yes (1) Physical Exam Const: GENERAL APPEARANCE: cooperative and anxious NUTRITIONAL APPEARANCE: obese ORIENTATION/CONSCIOUSNESS: Yes awake, Yes oriented to person, Yes oriented to place and Yes oriented to time HENMT: COMMON NORMALS: normocephalic, atraumatic and Normal external nose present HEAD & SCALP: normocephalic and atraumatic FACE & SINUS: normal facial exam NOSE: Normal external nose present Eye: COMMON NORMALS: Equal, round and reactive pupils present and EOMs intact bilaterally PUPIL: Yes Equal, round and reactive pupils present Chest: CHEST: Yes Symmetrical chest wall rise Resp: COMMON NORMALS: normal respiratory effort, No use of accessory muscles and clear to auscultation bilaterally AUSCULTATION: clear to auscultation bilaterally Cardio: COMMON NORMALS: regular rhythm RATE: tachycardic RHYTHM: regular rhythm GI: COMMON NORMALS: Normal to inspection, nondistended, normoactive bowel sounds present and Soft to palpation PALPATION: Yes Soft to palpation Extremity: COMMON NORMALS: normal to inspection Neuro: SOPHIA COMA SCALE: document GCS findings Sophia coma scale eye opening: Spontaneous Sophia coma scale verbal response: Orientated Sophia coma scale motor response: Obey commands Sophia coma scale total score: 15 COMMON NORMALS: moves all extremities and no focal motor deficits SENSORIUM/ORIENTATION: Yes oriented to person, Yes oriented to place and Yes oriented to time Course Consultations: Consultation #1: danelle Vital Signs: Vital signs: Vital Signs Temperature 97.7 F 08/31/21 19:28 Pulse Rate 135 H 08/31/21 22:15 Respiratory Rate 25 H 08/31/21 23:12 Blood Pressure 138/92 08/31/21 22:15 Pulse Oximetry 100 08/31/21 23:12 MDM - Fall Medical Decision Making 41-year-old diabetic patient presenting with dizziness, falls. Head CT is negative. She is hemoconcentrated with a hemoglobin of 17. White blood cell count is 12. Her bicarbonate level is 13. She has an anion gap metabolic acidosis of 7.24. She has received 2 L of fluid, IV insulin, metoprolol for significant tachycardia and hypertension. She is feeling some better. Heart rate is down to 100. Blood pressure 122/71. Saturations 97% on room air. Given her gap, she will have to be on insulin drip. Since her sugar is only 289 now, she will go on D5 normal saline with 40 mill equivalents of potassium chloride added for fluid support. Hospitalist is seeing the patient in the ER. Lab Data : 08/31/21 21:54 08/31/21 21:[address] 08/31/21 20:32 IMPRESSION: No acute intracranial abnormality. Laboratory Results WBC 11.8 10^3/uL (4.0-10.0) H 08/31/21 21:54 RBC 5.45 10^6/uL (4.1-5.3) H 08/31/21 21:54 Hgb 17.2 g/dL (11.5-15.3) H 08/31/21 21:54 Hct 50.6 % (37.0-47.0) H 08/31/21 21:54 MCV 92.8 fl (81-99) 08/31/21 21:54 MCH 31.6 pg (28.0-34.0) 08/31/21 21:54 MCHC 34.0 g/dL (30.0-36.0) 08/31/21 21:54 RDW 12.0 % (12.1-15.1) L 08/31/21 21:54 Plt Count 246 10^3/cmm (130-400) 08/31/21 21:54 MPV 10.0 fL (7.4-10.4) 08/31/21 21:54 Neut % (Auto) 58.4 % 08/31/21 21:54 Lymph % (Auto) 34.5 % 08/31/21 21:54 [place] % (Auto) 5.4 % 08/31/21 21:54 Eos % (Auto) 0.7 % 08/31/21 21:54 Baso % (Auto) 0.4 % 08/31/21 21:54 Neut # (Auto) 6.86 10^3/uL (1.8-7.7) 08/31/21 21:54 Lymph # (Auto) 4.1 10^3/uL (0.8-4.8) 08/31/21 21:54 [place] # (Auto) 0.6 10^3/uL (0.2-0.9) 08/31/21 21:54 Eos # (Auto) 0.1 10^3/uL (0.0-0.8) 08/31/21 21:54 Baso # (Auto) 0.1 10^3/uL (0.0-0.1) 08/31/21 21:54 Nucleated RBC % (auto) 0 % 08/31/21 21:54 Nucleated RBCs # 0.0 /100WBC 08/31/21 21:54 Specimen Type Arterial 08/31/21 23:36 Sample Site Radial, left 08/31/21 23:36 ABG pH 7.24 (7.35-7.45) L 08/31/21 23:36 ABG pCO2 23.3 mmHg (35-45) L 08/31/21 23:36 ABG pO2 93.3 mmHg (80.0-100.0) 08/31/21 23:36 ABG HCO3 10.0 mmol/L (22-26) L 08/31/21 23:36 ABG Base Excess -15.1 mmol/L (-2.0-2.0) L 08/31/21 23:36 Dwight Test Pos 08/31/21 23:36 Hematocrit 50.0 % (37-47) H 08/31/21 23:36 O2 Delivery Device None 08/31/21 23:36 Maintenance Service Supervisor ID Hensa 08/31/21 23:36 Sodium 133 mmol/L (136-145) L 08/31/21 21:54 Potassium 4.4 mmol/L (3.5-5.1) 08/31/21 21:54 Chloride 98 mmol/L (98-107) 08/31/21 21:54 Carbon Dioxide 13 mmol/L (22-29) L 08/31/21 21:54 Anion Gap 26.4 (5-19) H 08/31/21 21:54 BUN 11 mg/dL (6-20) 08/31/21 21:54 Creatinine 0.5 mg/dL (0.5-0.9) 08/31/21 21:54 GFR Calculation 137.4 mL/min (90-130) H 08/31/21 21:54 Glucose 339 mg/dL (65-115) H 08/31/21 21:54 POC Glucose 289 mg/dL (70-110) H 09/01/21 00:08 Calculated Osmolality 289 mOsm/kg (285-295) 08/31/21 21:54 Lactate 1.2 mmol/L (0.5-2.2) 08/31/21 21:54 Calcium 9.9 mg/dL (8.5-10.5) 08/31/21 21:54 Phosphorus 3.6 mg/dL (2.5-4.5) 08/31/21 21:54 Magnesium 1.9 mg/dL (1.7-2.3) 08/31/21 21:54 Total Bilirubin 0.5 mg/dL (0.15-1.2) 08/31/21 21:54 AST 8 U/L (0-32) 08/31/21 21:54 ALT 8 U/L (0-33) 08/31/21 21:54 Alkaline Phosphatase 143 IU/L (35-105) H 08/31/21 21:54 Total Protein 8.7 g/dL (6.6-8.7) 08/31/21 21:54 Albumin 4.5 g/dL (3.5-5.2) 08/31/21 21:54 Globulin 4.2 g/dL (1.3-4.6) 08/31/21 21:54 TSH 3.87 uIU/mL (0.27-4.20) 08/31/21 21:54 Urine Color Yellow (Yellow) 08/31/21 21:03 Urine Appearance Sl hazy (CLEAR) 08/31/21 21:03 Urine pH 5 (5-7) 08/31/21 21:03 Ur Specific [place] 1.025 (1.005-1.030) 08/31/21 21:03 Urine Protein 3+ (Negative) H 08/31/21 21:03 Urine Glucose (UA) 4+ (Normal) H 08/31/21 21:03 Urine Ketones 3+ (Negative) H 08/31/21 21:03 Urine Blood 2+ (Negative) H 08/31/21 21:03 Urine Nitrate Negative (Negative) 08/31/21 21: Urine Bilirubin Neg (Negative) 08/31/21 21:03 Urine Urobilinogen Norm mg/dL (Negative) 08/31/21 21:03 Ur Leukocyte Esterase 1+ (Negative) H 08/31/21 21:03 Urine RBC 10-15 /hpf (0-2) H 08/31/21 21:03 Urine WBC 40-55 /hpf (0-5) H 08/31/21 21:03 Ur Squamous Epith Cells 5-10 /hpf (0-5) H 08/31/21 21:03 Amorphous Sediment Not Reportable 08/31/21 21:03 Urine Bacteria 2+ /hpf (NONE) H 08/31/21 21:03 Hyaline Casts 0-4 /lpf H 08/31/21 21:03 Serum Ketones Negative (Negative) 08/31/21 21:54 Critical Care Time Critical Care Time: Critical Care Time: Yes Total Critical Care Time: 40 Attestation: This case had a high probability of a clinically significant, sudden, or life threatening deterioration of this patient's condition which required my full and direct attention, intervention and personal management. Discharge Plan Discharge Patient Disposition: Admitted As Inpatient Clinical Impression: Acute hyperglycemia, Metabolic acidosis, increased anion gap Condition: Stable Prescriptions: No Action albuterol sulfate [ProAir HFA] 90 mcg/actuation HFA aerosol inhaler 2 puff INHALATION Q6H PRN (Reason: shortness of breath or wheezing) Qty: 1 1RF rizatriptan [Maxalt] 10 mg tablet 10 mg PO Q2H PRN (Reason: migraine headache) Qty: 10 2RF Rx Instructions: may repeat 1 dose 2 hrs after 1st dose. take at earliest onset. meclizine 25 mg tablet 25 mg PO TID PRN (Reason: dizziness) Qty: 30 0RF (DME) blood-glucose meter [Blood Glucose Monitoring] Kit See Rx Instructions .ROUTE .MEDSUPPLY Qty: 1 0RF Rx Instructions: Brand/type per insurance coverage (DME) Blood Glucose Test Strip See Rx Instructions .ROUTE .MEDSUPPLY Qty: 50 11RF Rx Instructions: Brand/type to go with meter per insurance coverage (DME) BD Insulin Syringe 1 mL 25 x 1 syringe See Rx Instructions .ROUTE .MEDSUPPLY Qty: 100 12RF Rx Instructions: use to inject insulin up to 8 times daily Tylenol Ex Str Rapid Release 500 mg Tablet 1,000 mg PO Q4H PRN (Reason: Pain) 0RF Depo-Provera 150 mg/mL syringe 150 mg IM Q90D 0RF Referrals: Susan Whalen MD [Primary Care Provider] - Coding Level of Care Code ED Loan Servicing Officer for Chg Fwd Exam Comprehensive
[2021-08-31] MEDS: sodium chloride 0.9% 1,000 ML 999 ML IV ×2 (21:10→22:20)
[2021-08-31 21:18] LABS: Add Urine Microscopic? YES; Bilirubin Urine Neg (Negative); Blood Urine 2+ (Negative); Glucose Urine UA 4+ (Normal); Ketones Urine 3+ (Negative); Leukocyte Esterase Urine 1+ (Negative); Nitrate Urine Negative (Negative); Protein Urine 3+ (Negative); Specific Gravity, Urine 1.025 (1.005-1.030); Urine Appearance SL Hazy (CLEAR); Urine Color Yellow (Yellow); Urobilinogen Urine Norm (Negative); pH Urine 5 (5-7)
[2021-08-31 21:22] LABS: Add Urine Culture? Yes; Bacteria Urine 2+ /hpf; Hyaline Casts Urine 0-4 /lpf; WBC Urine 40-55 /hpf (0-5)
[2021-08-31 22:11] LABS: Basophils # 0.1 10^3/uL (0.0-0.1); Basophils % 0.4 %; Eosinophils # 0.1 10^3/uL (0.0-0.8); Eosinophils % 0.7 %; Hematocrit 50.6 % (37.0-47.0); Hemoglobin 17.2 g/dL (11.5-15.3); Lymphocytes # 4.1 10^3/uL (0.8-4.8); Lymphocytes % 34.5 %; Mean Corpuscular Hemoglobin 31.6 pg (28.0-34.0); Mean Corpuscular Volume 92.8 fl (81-99); Monocytes # 0.6 10^3/uL (0.2-0.9); Monocytes % 5.4 %; Neutrophils # 6.86 10^3/uL (1.8-7.7); Neutrophils % 58.4 %; Nucleated Red Blood Cells % 0 %; Platelet Count 246 10^3/cmm (130-400); Red Blood Count 5.45 10^6/uL (4.1-5.3); White Blood Count 11.8 10^3/uL (4.0-10.0)
[2021-08-31 22:32] LABS: Ketone (Acetest) Serum Negative (Negative)
[2021-08-31 22:43] LABS: Alanine Aminotransferase 8 U/L (0-33); Albumin Level 4.5 g/dL (3.5-5.2); Alkaline Phosphatase 143 IU/L (35-105); Anion Gap 26.4 (5-19); Aspartate Amino Transferase 8 U/L (0-32); Blood Urea Nitrogen 11 mg/dL (6-20); Calcium 9.9 mg/dL (8.5-10.5); Carbon Dioxide 13 mmol/L (22-29); Chloride 98 mmol/L (98-107); Globulin 4.2 g/dL (1.3-4.6); Glomerular Filtration Rate 137.4 mL/min (90-130); Glucose 339 mg/dL (65-115); Magnesium 1.9 mg/dL (1.7-2.3); Osmolality Calculated 289 mOsm/kg (285-295); Phosphorus 3.6 mg/dL (2.5-4.5); Potassium 4.4 mmol/L (3.5-5.1); Sodium 133 mmol/L (136-145); Thyroid Stimulating Hormone 3.87 uIU/mL (0.27-4.20); Total Bilirubin 0.5 mg/dL (0.15-1.2); Total Protein 8.7 g/dL (6.6-8.7)
[2021-08-31 23:10] LABS: Lactate (Lactic Acid level) 1.2 mmol/L (0.5-2.2)
[2021-08-31] MEDS: metoprolol tartrate 1 mg/1 mL SDV 5 mL 5 MG IVP (23:11)
[2021-08-31] MEDS: insulin regular-human 100 units/1 mL 10 UNIT IVP (23:12)
[2021-08-31] MEDS: ondansetron 2 mg/ML SDV 2 mL 4 MG IVP (23:12)
[2021-08-31] MEDS: morphine 4 mg/mL SDV 1 mL IVP (23:12)
[2021-08-31 23:47] LABS: ABG PCO2 23.3 mmHg (35-45); ABG PH Result 7.24 (7.35-7.45); Base Excess ABG -15.1 mmol/L (-2.0-2.0); Blood Gas Allen Test Pos; Blood Gas Sample Site Radial, left; Blood Gas Sample Type Arterial; PO2 ABG 93.3 mmHg (80.0-100.0)
[2021-09-01] VITALS: BP 113/70; PULSE 105; RESP 17; O2SAT 100
[2021-09-01 00:11] LABS: Glucose Point of Care 289 mg/dL (70-110)
[2021-09-01 00:30] VITALS: BP 128/73; PULSE 107; RESP 17; O2SAT 99
--- NOTE | 2021-09-01 00:41 | P.HP_ITS ---
Providers/Chief Complaint Primary Care Provider: Susan Whalen MD Chief Complaint: FALL History of Present Illness Eliana Rider is a 41 year old female who presented today after 2 syncopal events. Patient does not take any insulin or medication for her blood pressure. She is stating that she is on 0 medications at home. She carries history of type 2 diabetes. Patient is stating on Wednesday she had 1 syncopal event when she was using restroom, she was seen in the ER and was discharged home however she experienced another syncopal event at home. Her significant other brought her to the ER for further evaluation. She was diagnosed with hyperglycemia hyperosmolar nonketotic state, requiring IV insulin with D5, her blood sugar improved with fluid boluses, she is consistently tachycardic. She is endorsing use of methamphetamine yesterday. Patient is stating that tomorrow she was about to go see a doctor for her uncontrolled type 2 diabetes. CBC is consistent with hemoconcentration hemoglobin 17.2. She is denying dysuria however abnormal UA noted, acidosis, lactic acid is normal, ketones negative I requested hemoglobin A1c level Bicarb IV push, start insulin start D5 with potassium Admit to ICU CT head unremarkable, she experienced only 1 episode of emesis, her headache improved with use of morphine no signs of intracranial hypertension during my evaluation in the ER. Review of Systems Const: Reports: body aches, fatigue and malaise Eyes: Denies: change in vision ENMT: Denies: throat pain Card: Denies: chest pain Resp: Denies: dyspnea GI: Reports: nausea and vomiting : Denies: flank pain Musc: Reports: neck pain Skin/Breast: Reports: lesions Neuro: Reports: headache(s) Psych: Reports: anxiety, depression and mood swings Endo: Reports: polyuria Jose Manuel/Lymph: Denies: easy bruising All/Imm: Denies: urticaria Medications/Allergies Home Medications Medication Instructions Recorded Confirmed Last Taken Type albuterol sulfate 90 mcg/actuation 2 puff INHALATION Q6H PRN #1 each 02/29/20 08/29/21 Unknown Rx aerosol inhaler (ProAir HFA) insulin syringe-needle U-100 1 mL #100 ea 04/10/20 08/29/21 Unknown Rx 25 x 1 (BD Insulin Syringe) blood sugar diagnostic (Blood #50 ea 06/18/20 08/29/21 Unknown Rx Glucose Test) blood-glucose meter (Blood Glucose #1 ea 06/18/20 08/29/21 Unknown Rx Monitoring) rizatriptan 10 mg tablet (Maxalt) 10 mg PO Q2H PRN #10 tab 05/06/21 08/29/21 Unknown Rx meclizine 25 mg tablet 25 mg PO TID PRN #30 tab 07/03/21 08/29/21 Unknown Rx acetaminophen 500 mg tablet 1,000 mg PO Q4H PRN 08/29/21 08/29/21 Unknown History medroxyprogesterone 150 mg/mL 150 mg IM Q90D 08/29/21 08/29/21 07/22/21 History intramuscular syringe (Depo-Provera) Allergies Allergy/AdvReac Type Severity Reaction Status Date / Time adhesive tape Allergy rash Verified 08/29/21 12:41 PFSH Acute PFSH: Medical History Asthma Blood type A- 02/20/2019: Blood type: A NEGATIVE. Depression Headache History of closed head injury History of migraine headaches History of syphilis (~08/2016) Diagnosed and treated for syphilis in August 2016. Reports having a low level RPR since that time. Being followed by [facility]. Hyperlipidemia Hypertension Obesity, morbid, BMI 40.0-49.9 PTSD (post-traumatic stress disorder) Rubella non-immune status, antepartum Surgical History S/P section 07/25/2019- [place], [place] S/P cholecystectomy (~1999) Laparoscopic. Performed in [place], [place]. Age 19 S/P dilation and curettage (12/01/15) Diagnosis: Abnormal endometrial lining. Performed by Dr. Lechuga at [facility] in [place], [place]. Pathology: chronic endometritis S/P T&A (status post tonsillectomy and adenoidectomy) (~1986) Performed in [place], [place]. Age 6 S/P tubal ligation 07/05/2019- performed with section at [facility] Status post surgery (~1985) Reattachment of amputated right fourth finger. Performed in [place], [place]. Age 5. Family History Mother Hypertension CHF (congestive heart failure) Grandmother Hypertension maternal Diabetes Heart disease Stroke Maternal great Mitral valve disease Grandfather Diabetes maternal Heart disease Hypercholesteremia Stroke Social History Smoking and tobacco status: former smoker Quit status (tobacco): has quit using tobacco Alcohol intake: current Alcohol intake frequency: holidays/special occasions only Alcohol type: wine Female Reproductive History: Date of last menstrual period: 11/18/19 Para: 1 Spontaneous abortions: Yes (1) Vitals/I&O/Wt Last Vital Signs Temp 97.7 F 08/31/21 19:28 Pulse 135 H 08/31/21 22:15 Resp 25 H 08/31/21 23:12 BP 138/92 08/31/21 22:15 Pulse Ox 100 08/31/21 23:12 08/31/21 08/31/21 09/01/21 14:59 22:59 06:59 Intake Total 1000 / 1000 1000 / 2000 Balance 1000 / 1000 1000 / 2000 Weight last 48 hrs Weight 108.862 kg Physical Exam Narrative: Pleasant cooperative female Morbidly obese Significant other at bedside Hemodynamically stable Sinus tachycardia Abdomen soft Visceral obesity Nondistended No signs of peritonitis No signs of edema Multiple skin tattoos Patient does seem to have tardive dyskinesia signs No signs of meningitis No active headache AWake alert , PERRLA GCS 15 Nonfocal neuro exam Data : 08/31/21 21:54 08/31/21 21:54 A&P Assessment and plan (1) Contusion of head: Status: Acute (2) Acute hyperglycemia: Status: Acute (3) Metabolic acidosis, increased anion gap: Status: Acute (4) Headache: Status: Acute (5) Tachycardia: Status: Acute (6) Methamphetamine use: Status: Acute Plan Hyper glycemia hyperosmolar state Start insulin along D5 with potassium supplementation Stop insulin once anion gap closes Check A1c level Patient will need outpatient endocrinology follow-up Depending on A1c level further decision will be made for insulin usage at the time of discharge Abnormal UA however no symptoms of UTI Will give her ceftriaxone 1 g for now obtain urine culture She has positive urinary ketones, hematuria, She is afebrile Head contusion after 2 syncopal events, most likely related to hyperglycemia state CT head unremarkable NIH 0 Check drug screen Patient is endorsing use of methamphetamine She will need insulin, PCP and endocrinology appointment at the time of discharge Clear liquid for now Sinus tachycardia likely secondary to use of albuterol for her asthma, methamphetamine abuse, dehydration She is fluid responsive Check D-dimer, Patient takes hormonal contraceptives for her irregular menstrual periods, Full code DVT prophylaxis on board Attestations Medical Necessity Statement*: Patient is requiring ICU for management of hyperglycemia hyper osmolar state She will need insulin along D5, depending on her progress further decision will be made regarding length of stay however I am anticipating she might need more than 2 midnights Time Spent in Patient Care: 40mins Coding Level of Care Code Acute Moving Picture Producer for Mario Johnson Diagnoses Contusion of head S00.93XA Acute hyperglycemia R73.9 Metabolic acidosis, increased anion gap E87.2 Headache R51.9 Tachycardia R00.0 Methamphetamine use F15.10
[2021-09-01 01:00] VITALS: BP 116/68; PULSE 106; RESP 18; O2SAT 100
[2021-09-01 01:08] LABS: Amphetamines Screen Urine Positive (Negative); Barbiturates Screen Urine Negative (Negative); Benzodiazepines Screen Urine Negative (Negative); Cocaine Screen Urine Negative (Negative); Opiate Screen Urine Negative (Negative); PCP Screen Urine Negative (Negative); THC Screen Urine Negative (Negative)
[2021-09-01 01:15] VITALS: BP 122/71; PULSE 106; RESP 19; O2SAT 99
[2021-09-01 01:18] LABS: Glucose Point of Care 294 mg/dL (70-110)
[2021-09-01] MEDS: insulin regular-human 250 UNIT in sodium chloride 0.9% 250 ML 7.07 UNIT IV (01:22)
[2021-09-01 01:25] LABS: Estmated Average Glucose 286; Hemoglobin A1C 11.6 % (4.0-6.0)
[2021-09-01] MEDS: sodium bicarbonate 8.4% 1 mEq/mL 50mL Syr 25 MEQ IVP (01:25)
[2021-09-01] MEDS: enoxaparin 40 mg/0.4 mL Syringe SUBCUT (01:25)
[2021-09-01] MEDS: D5-NS 0.45% + KCL 20 mEq 20 MEQ/1,000 ML BAG 100 MEQ IV (01:25)
[2021-09-01 02:09] LABS: Thyroid Stimulating Hormone 3.75 uIU/mL (0.27-4.20)
[2021-09-01 02:52] LABS: Glucose Point of Care 278 mg/dL (70-110)
[2021-09-01 03:54] LABS: Glucose Point of Care 299 mg/dL (70-110)
[2021-09-01 05:01] LABS: Glucose Point of Care 237 mg/dL (70-110)
[2021-09-01 05:50] LABS: Basophils % 0.4 %; Eosinophils # 0.1 10^3/uL (0.0-0.8); Eosinophils % 0.8 %; Hematocrit 44.1 % (37.0-47.0); Lymphocytes # 4.7 10^3/uL (0.8-4.8); Lymphocytes % 42.7 %; Mean Corpuscular Hemoglobin 31.1 pg (28.0-34.0); Mean Corpuscular Volume 91.3 fl (81-99); Mean Platelet Volume 10.4 fL (7.4-10.4); Monocytes # 0.6 10^3/uL (0.2-0.9); Monocytes % 5.6 %; Neutrophils # 5.55 10^3/uL (1.8-7.7); Nucleated Red Blood Cells % 0 %; Platelet Count 262 10^3/cmm (130-400); Red Blood Count 4.83 10^6/uL (4.1-5.3); Red Cell Distribution Width 11.9 % (12.1-15.1); White Blood Count 11.1 10^3/uL (4.0-10.0)
[2021-09-01 05:58] LABS: Glucose Point of Care 199 mg/dL (70-110)
[2021-09-01 06:08] LABS: Anion Gap 17.3 (5-19); Blood Urea Nitrogen 9 mg/dL (6-20); Calcium 8.6 mg/dL (8.5-10.5); Carbon Dioxide 17 mmol/L (22-29); Chloride 106 mmol/L (98-107); Glomerular Filtration Rate 177.7 mL/min (90-130); Glucose 259 mg/dL (65-115); Magnesium 1.7 mg/dL (1.7-2.3); Osmolality Calculated 292 mOsm/kg (285-295); Potassium 3.3 mmol/L (3.5-5.1); Sodium 137 mmol/L (136-145)
[2021-09-01 06:13] LABS: D Dimer 0.31 ug/mIFEU (0-0.59)
[2021-09-01] MEDS: sodium chloride 0.9% 1,000 ML 75 ML IV ×2 (07:23→22:10)
[2021-09-01 07:25] LABS: Glucose Point of Care 186 mg/dL (70-110)
[2021-09-01] MEDS: insulin lispro 100 unit/1 mL SUBCUT ×3 (07:26→17:50)
[2021-09-01] MEDS: insulin glargine 100 units/1 mL 20 UNIT SUBCUT ×2 (07:26→22:10)
[2021-09-01 08:39] LABS: Anion Gap 20.7 (5-19); Blood Urea Nitrogen 10 mg/dL (6-20); Calcium 8.5 mg/dL (8.5-10.5); Carbon Dioxide 14 mmol/L (22-29); Chloride 105 mmol/L (98-107); Glomerular Filtration Rate 177.7 mL/min (90-130); Glucose 215 mg/dL (65-115); Osmolality Calculated 288 mOsm/kg (285-295); Potassium 3.7 mmol/L (3.5-5.1); Sodium 136 mmol/L (136-145)
--- NOTE | 2021-09-01 09:03 | PC.CHAP ---
Pastoral Care Encounter/Spiritual Assessment Type of Contact [] Declined multicultural internship visit [] Patient/Family/Request visit [] Outpatient visit [] Follow-up visit [] Physician referral [] Code/Alert [x] Routine visit [] Staff referral [] Actively dying [] Patient sleeping [] Family support [] [] Out of room [] Palliative care [] [] Receiving care in room [] Pre-surgical visit [] Trauma [] Long length of stay [x] ICU visit [] Other: Relational/Emotional Strength [] Patient feels connected with others/family/visitors/staff [] Distress [] Loneliness/isolation [] Abandonment Spirituality of Patient [] Person of Ana [] Attends Sikh of their Ana [] Believes in Prayer [] Reads Bible or Rastafari materials [] There are Spiritual issues to be addressed Shoes Salesperson Interventions [x] Prayer [x] Active listening [x] Non-anxious presence [x] Spiritual/emotional support [] Crisis/trauma care [] Spiritual counseling [] Bereavement support [] Provided bereavement packet [] Provided Bible/devotional materials [] Provided toy/stuffed animal, coloring book to patient or family member [] Provided Communion [] Anointing/[place] [] Salvation [x] Completed spiritual assessment [] Other: Impact on Illness or Injury [] Angry [] Fearful [] Anxious [] Often cries [] Exhaustion [] Unable to work [] Unable to attend episcopal [] Unable to walk/stand [] Unable to read [] Unable to drive [] Unable to eat/drink [] Unable to sleep [] Unable to be with family [] Patient intubated [] Other: Summary diabetic.. looking to get under control... wanted to be home soon with 2yr old daughter.... Time spent with patient 5 min
--- NOTE | 2021-09-01 09:08 | P.EN_ITS ---
Event Note Event Note: Cross coverage note, in assuming care this morning. She is noted to now be not acidotic, not hyperosmotic, taking oral readily. In fact she is keen to go home. She is been switched off of her insulin drip and is now on basal insulin plus IV fluids still. I will plan to transfer out of the [facility] care unit.
[2021-09-01] MEDS: cefTRIAXone 1,000 MG in sodium chloride 0.9% (plus) 50 ML 100 MG IV (09:39)
--- NOTE | 2021-09-01 11:05 | PC.NURSE ---
Pt was transferred to [facility] at 1050 via wheelchair. No complaints and pt tolerated well. Staff made aware.
[2021-09-01 11:37] LABS: Glucose Point of Care 274 mg/dL (70-110)
[2021-09-01 17:54] LABS: Glucose Point of Care 318 mg/dL (70-110)
[2021-09-01 20:45] LABS: Glucose Point of Care 367 mg/dL (70-110)
[2021-09-02 06:30] LABS: Glucose Point of Care 328 mg/dL (70-110)
[2021-09-02] MEDS: cefTRIAXone 1,000 MG in sodium chloride 0.9% (plus) 50 ML 50 MG IV (08:49)
[2021-09-02] MEDS: insulin lispro 100 unit/1 mL SUBCUT (08:49)
--- NOTE | 2021-09-02 11:55 | PM.DCS ---
Discharge Providers Date of Admission: 09/01/21 01:10 Date of Discharge: September 02, 2021 Attending Provider at Admission: Claudia Martino MD Attending Provider at Discharge: Sravan Fontaine MD Primary Care Provider: Susan Whalen MD Diagnoses at Discharge Discharge Diagnosis (1) Acute hyperglycemia: Details from hospital stay: Largely resolved now as a result of IV fluids and insulin. Status: Acute (2) Metabolic acidosis, increased anion gap: Details from hospital stay: Now resolved Status: Acute (3) Tachycardia: Status: Acute (4) Methamphetamine use: Status: Acute (5) UTI (urinary tract infection): Status: Acute Reason for Visit Reason for Visit: FALL Hospital Course Hospital Course She was admitted with metabolic acidosis and hyperglycemia. She was noted to have a urinary tract infection. She was given IV fluids, insulin, and antibiosis. She rallied quite quickly. We had a long discussion about her hyperglycemia and how she has not been on any insulin of late. She has an appointment with her primary care physician but I am going to go ahead and start her on some basal insulin on discharge. She will also be on some Levaquin for 5 more days. Physical Exam Narrative: Pleasant cooperative female Morbidly obese Significant other at bedside Hemodynamically stable Sinus tachycardia Abdomen soft Visceral obesity Nondistended No signs of peritonitis No signs of edema Multiple skin tattoos Patient does seem to have tardive dyskinesia signs No signs of meningitis No active headache AWake alert , PERRLA GCS 15 Nonfocal neuro exam Discharge Data Studies Completed and Pending Completed Studies During Hospitalization Category Date Time Status CT head wo con* [id number] Urgent Cat Scan 08/31/21 20:32 Completed Pending at discharge Category Date Time Status Urine Culture Stat Lab 08/31/21 21:03 Results Radiology Impressions Head CT 08/31/21 20:32 IMPRESSION: No acute intracranial abnormality. Laboratory Results WBC 11.1 10^3/uL (4.0-10.0) H 09/01/21 04:54 RBC 4.83 10^6/uL (4.1-5.3) 09/01/21 04:54 Hgb 15.0 g/dL (11.5-15.3) 09/01/21 04:54 Hct 44.1 % (37.0-47.0) 09/01/21 04:54 MCV 91.3 fl (81-99) 09/01/21 04:54 MCH 31.1 pg (28.0-34.0) 09/01/21 04:54 MCHC 34.0 g/dL (30.0-36.0) 09/01/21 04:54 RDW 11.9 % (12.1-15.1) L 09/01/21 04:54 Plt Count 262 10^3/cmm (130-400) 09/01/21 04:54 MPV 10.4 fL (7.4-10.4) 09/01/21 04:54 Neut % (Auto) 50.0 % 09/01/21 04:54 Lymph % (Auto) 42.7 % 09/01/21 04:54 [place] % (Auto) 5.6 % 09/01/21 04:54 Eos % (Auto) 0.8 % 09/01/21 04:54 Baso % (Auto) 0.4 % 09/01/21 04:54 Neut # (Auto) 5.55 10^3/uL (1.8-7.7) 09/01/21 04:54 Lymph # (Auto) 4.7 10^3/uL (0.8-4.8) 09/01/21 04:54 [place] # (Auto) 0.6 10^3/uL (0.2-0.9) 09/01/21 04:54 Eos # (Auto) 0.1 10^3/uL (0.0-0.8) 09/01/21 04:54 Baso # (Auto) 0.0 10^3/uL (0.0-0.1) 09/01/21 04:54 Nucleated RBC % (auto) 0 % 09/01/21 04:54 Nucleated RBCs # 0.0 /100WBC 09/01/21 04:54 D-Dimer 0.31 ug/mIFEU (0-0.59) 09/01/21 04:54 Specimen Type Arterial 08/31/21 23:36 Sample Site Radial, left 08/31/21 23:36 ABG pH 7.24 (7.35-7.45) L 08/31/21 23:36 ABG pCO2 23.3 mmHg (35-45) L 08/31/21 23:36 ABG pO2 93.3 mmHg (80.0-100.0) 08/31/21 23:36 ABG HCO3 10.0 mmol/L (22-26) L 08/31/21 23:36 ABG Base Excess -15.1 mmol/L (-2.0-2.0) L 08/31/21 23:36 Dwight Test Pos 08/31/21 23:36 Hematocrit 50.0 % (37-47) H 08/31/21 23:36 O2 Delivery Device None 08/31/21 23:36 Motorcycle Subassembly Repairer ID Hensa 08/31/21 23:36 Sodium 136 mmol/L (136-145) 09/01/21 07:38 Potassium 3.7 mmol/L (3.5-5.1) 09/01/21 07:38 Chloride 105 mmol/L (98-107) 09/01/21 07:38 Carbon Dioxide 14 mmol/L (22-29) L 09/01/21 07:38 Anion Gap 20.7 (5-19) H 09/01/21 07:38 BUN 10 mg/dL (6-20) 09/01/21 07:38 Creatinine 0.4 mg/dL (0.5-0.9) L 09/01/21 07:38 GFR Calculation 177.7 mL/min (90-130) H 09/01/21 07:38 Glucose 215 mg/dL (65-115) H 09/01/21 07:38 POC Glucose 328 mg/dL (70-110) H 09/02/21 06:24 Estimat Average Glucose 286 08/31/21 21:54 Hemoglobin A1c 11.6 % (4.0-6.0) H 08/31/21 21:54 Calculated Osmolality 288 mOsm/kg (285-295) 09/01/21 07:38 Lactate 1.2 mmol/L (0.5-2.2) 08/31/21 21:54 Calcium 8.5 mg/dL (8.5-10.5) 09/01/21 07:38 Phosphorus 3.6 mg/dL (2.5-4.5) 08/31/21 21:54 Magnesium 1.7 mg/dL (1.7-2.3) 09/01/21 04:54 Total Bilirubin 0.5 mg/dL (0.15-1.2) 08/31/21 21:54 AST 8 U/L (0-32) 08/31/21 21:54 ALT 8 U/L (0-33) 08/31/21 21:54 Alkaline Phosphatase 143 IU/L (35-105) H 08/31/21 21:54 Total Protein 8.7 g/dL (6.6-8.7) 08/31/21 21:54 Albumin 4.5 g/dL (3.5-5.2) 08/31/21 21:54 Globulin 4.2 g/dL (1.3-4.6) 08/31/21 21:54 TSH 3.75 uIU/mL (0.27-4.20) 08/31/21 21:54 TSH 3.87 uIU/mL (0.27-4.20) 08/31/21 21:54 Urine Color Yellow (Yellow) 08/31/21 21:03 Urine Appearance Sl hazy (CLEAR) 08/31/21 21:03 Urine pH 5 (5-7) 08/31/21 21:03 Ur Specific [place] 1.025 (1.005-1.030) 08/31/21 21:03 Urine Protein 3+ (Negative) H 08/31/21 21:03 Urine Glucose (UA) 4+ (Normal) H 08/31/21 21:03 Urine Ketones 3+ (Negative) H 08/31/21 21:03 Urine Blood 2+ (Negative) H 08/31/21 21:03 Urine Nitrate Negative (Negative) 08/31/21 21: Urine Bilirubin Neg (Negative) 08/31/21 21:03 Urine Urobilinogen Norm mg/dL (Negative) 08/31/21 21:03 Ur Leukocyte Esterase 1+ (Negative) H 08/31/21 21:03 Urine RBC 10-15 /hpf (0-2) H 08/31/21 21:03 Urine WBC 40-55 /hpf (0-5) H 08/31/21 21:03 Ur Squamous Epith Cells 5-10 /hpf (0-5) H 08/31/21 21:03 Amorphous Sediment Not Reportable 08/31/21 21:03 Urine Bacteria 2+ /hpf (NONE) H 08/31/21 21:03 Hyaline Casts 0-4 /lpf H 08/31/21 21:03 Urine Opiates Screen Negative ng/mL (Negative) 08/31/21 21:03 Ur Barbiturates Screen Negative ng/mL (Negative) 08/31/21 21:03 Ur Phencyclidine Scrn Negative ng/mL (Negative) 08/31/21 21:03 Ur Amphetamines Screen Positive ng/mL (Negative) H 08/31/21 21:03 U Benzodiazepines Scrn Negative ng/mL (Negative) 08/31/21 21:03 Urine Cocaine Screen Negative ng/mL (Negative) 08/31/21 21:03 U Marijuana (THC) Screen Negative ng/mL (Negative) 08/31/21 21:03 Serum Ketones Negative (Negative) 08/31/21 21:54 Vitals Last Vital Signs Temp 97.7 F 08/31/21 19:28 Pulse 106 H 09/01/21 01:15 Resp 19 H 09/01/21 01:15 BP 122/71 09/01/21 01:15 Pulse Ox 99 09/01/21 01:15 Discharge Plan Discharge Patient Disposition: Home Condition: Stable Prescriptions: New Lantus Solostar U-100 Insulin 100 unit/mL (3 mL) insulin pen 20 unit SUBCUT BID Qty: 15 3RF levofloxacin 500 mg tablet 500 mg PO Q24H 5 Days Qty: 5 0RF Continued albuterol sulfate [ProAir HFA] 90 mcg/actuation HFA aerosol inhaler 2 puff INHALATION Q6H PRN (Reason: shortness of breath or wheezing) Qty: 1 1RF rizatriptan [Maxalt] 10 mg tablet 10 mg PO Q2H PRN (Reason: migraine headache) Qty: 10 2RF Rx Instructions: may repeat 1 dose 2 hrs after 1st dose. take at earliest onset. meclizine 25 mg tablet 25 mg PO TID PRN (Reason: dizziness) Qty: 30 0RF (DME) blood-glucose meter [Blood Glucose Monitoring] Kit See Rx Instructions .ROUTE .MEDSUPPLY Qty: 1 0RF Rx Instructions: Brand/type per insurance coverage (DME) Blood Glucose Test Strip See Rx Instructions .ROUTE .MEDSUPPLY Qty: 50 11RF Rx Instructions: Brand/type to go with meter per insurance coverage (DME) BD Insulin Syringe 1 mL 25 x 1 syringe See Rx Instructions .ROUTE .MEDSUPPLY Qty: 100 12RF Rx Instructions: use to inject insulin up to 8 times daily acetaminophen [Tylenol Ex Str Rapid Release] 500 mg Tablet 1,000 mg PO Q4H PRN (Reason: Pain) 0RF medroxyprogesterone [Depo-Provera] 150 mg/mL syringe 150 mg IM Q90D 0RF Discharge Orders: Discharge Order (Routine); Ordered 09/02/21 Ordered By: Sravan Fontaine Referrals: Susan Whalen MD [Primary Care Provider] - 09/08/21 11:00 am Patient Instructions: Opioid Safety Discharge Attestations Time Spent in Discharge Care*: less than 30 min Quality Metrics Clinical Quality Measures [ No reported AMI, CVA or VTE this stay] Coding Level of Care Code Acute Chg FW DC note Diagnoses Acute hyperglycemia R73.9 Metabolic acidosis, increased anion gap E87.2 Tachycardia R00.0 Methamphetamine use F15.10 UTI (urinary tract infection) N39.0
[2021-09-02 12:03] LABS: Glucose Point of Care 349 mg/dL (70-110)
--- NOTE | 2021-09-02 12:20 | PC.NURSE ---
Discharge Note Patient discharged to home via private vehicle accompanied by significant other. Discharge instructions reviewed with patient and/or sales representative metals. Mobile pharmacy medications and/or prescriptions provided. Belongings/home medications returned.
[2021-09-02 12:41] VITALS: BP 122/71; PULSE 106; RESP 19; O2SAT 99
== END 2021-09-02 12:41 | disposition home or self-care (01) | DRG 638 ==
LOC: ER 09-01 00:58 → ICU 09-01 01:10 → MEDSURG 09-01 10:57
PROVIDERS: Admitting Provider Internal Medicine; Emergency Provider Emergency Medicine; PCP Family Medicine; Visit Provider Internal Medicine
DX: E11.00 Type 2 diabetes mellitus with hyperosmolarity without nonketotic hyperglycemic-hyperosmolar coma (NKHHC) (principal); E87.2 Acidosis; N39.0 Urinary tract infection, site not specified; R00.0 Tachycardia, unspecified; F15.10 Other stimulant abuse, uncomplicated; Z87.891 Personal history of nicotine dependence; E11.65 Type 2 diabetes mellitus with hyperglycemia; I10 Essential (primary) hypertension; S00.93XA Contusion of unspecified part of head, initial encounter; W19.XXXA Unspecified fall, initial encounter
CPT/HCPCS: 36415; 36416; 36600; 70450; 80048; 80053; 80306; 81001; 82009; 82803; 82962; 83036; 83605; 83735; 84100; 84443; 85025; 85378; 87086; 96365; 96367; 96372; 96375; 99285; J0696; J1650; J1815 ×2; J2270; J2405; J3490; J7030; J7050

== ENCOUNTER → 2021-09-24 15:45 | Outpatient (BNVA) | payer MEDICAID, SELFPAY | PROVIDERS: PCP Family Medicine; Visit Provider Emergency Medicine | DX: E11.649 Type 2 diabetes mellitus with hypoglycemia without coma (principal); I10 Essential (primary) hypertension; E78.5 Hyperlipidemia, unspecified; E66.01 Morbid (severe) obesity due to excess calories; Z87.898 Personal history of other specified conditions | CPT/HCPCS: 80053; 80061; 81000; 83036; 84443; 85025 ==

== ENCOUNTER 2023-03-09 20:44 | Inpatient (IN) | payer MEDICAID, SELFPAY ==
[2023-03-09] VITALS (15 sets, daily range): BP systolic 133–194; BP diastolic 70–107; PULSE 90–123; RESP 16–32; TEMP 36.7–36.9; O2SAT 94–100; BMI 39.6
--- NOTE | 2023-03-09 20:57 | W.ED.PSYCHS ---
HPI - Psych General: Chief Complaint: Psychiatric Symptoms Stated Complaint: boyfriend wants patient to go to stress unit Time Seen by Provider: 03/09/23 20:47 Source: patient Mode of arrival: ambulatory Limitations: no limitations History of Present Illness: 42-year-old female does have a history of patient states she has not seen a psychiatrist not on any meds currently she been having worsening depression she made a statement yesterday to her boyfriend that she wanted to kill herself by overdosing on her lisinopril. She states that it was a thought at that time but since passed she denies being actively suicidal but does admit to being severely depressed she states she does want to be admitted to the [facility] for help at this time. Associated symptoms: Reports depression Review of Systems Const: Denies: fever(s), chills, body aches or change in appetite Eyes: Denies: eye discomfort ENMT: Denies: throat pain or dental pain Card: Denies: chest pain Resp: Denies: dyspnea GI: Denies: abdominal pain, nausea, vomiting or diarrhea Musc: Denies: neck pain or back pain Skin/Breast: Denies: rash Neuro: Denies: headache(s) Psych: Reports: depression Jose Manuel/Lymph: Denies: easy bruising All/Imm: Denies: urticaria PFSH ED PFSH: Medical History Asthma Blood type A- 02/20/2019: Blood type: A NEGATIVE. Depression Headache History of closed head injury History of migraine headaches History of syphilis (~08/2016) Diagnosed and treated for syphilis in August 2016. Reports having a low level RPR since that time. Being followed by [facility]. Hyperlipidemia Hypertension Methamphetamine use Obesity, morbid, BMI 40.0-49.9 PTSD (post-traumatic stress disorder) Rubella non-immune status, antepartum Surgical History S/P section 07/25/2019- [facility] [place], [place] S/P cholecystectomy (~1999) Laparoscopic. Performed in [place], [place]. Age 19 S/P dilation and curettage (12/01/15) Diagnosis: Abnormal endometrial lining. Performed by Dr. Lechuga at [facility] in [place], [place]. Pathology: chronic endometritis S/P T&A (status post tonsillectomy and adenoidectomy) (~1986) Performed in [place], [place]. Age 6 S/P tubal ligation 07/05/2019- performed with section at [facility] Status post surgery (~1985) Reattachment of amputated right fourth finger. Performed in [place], [place]. Age 5. Family History Mother Hypertension CHF (congestive heart failure) Grandmother Hypertension maternal Diabetes Heart disease Stroke Maternal great Mitral valve disease Grandfather Diabetes maternal Heart disease Hypercholesteremia Stroke Social History Smoking and tobacco/nicotine status: never used tobacco/nicotine Quit status (tobacco/nicotine): has quit using Alcohol intake: current Alcohol intake frequency: holidays/special occasions only Alcohol type: wine Substance/Drug Use: former Date of last use: 2008 cocaine, no use since 2009, meth use...no use since end august. Female Reproductive History: Para: 1 Spontaneous abortions: Yes (1) Physical Exam Const: COMMON NORMALS: patient oriented x3 HENMT: COMMON NORMALS: normocephalic and atraumatic HEAD & SCALP: normocephalic and atraumatic Neck/C-Spine: COMMON NORMALS: full ROM and supple Chest: COMMONS NORMALS: normal inspection of the chest Resp: COMMON NORMALS: normal respiratory effort Cardio: COMMON NORMALS: No murmurs present (Cardio) GI: INSPECTION: Yes normal to inspection Extremity: COMMON NORMALS: normal to inspection and full ROM Neuro: COMMON NORMALS: patient oriented x3, moves all extremities and no focal motor deficits Psych: COMMON NORMALS: mental status grossly normal, Normal thought process present and cooperative MOOD & AFFECT: Yes depressed mood, Yes sad and Yes tearful THOUGHT PROCESS: Normal thought process present Skin: COMMON NORMALS: no rashes or lesions noted and no wounds GENERAL SKIN EXAM: no rashes or lesions noted Course Vital Signs: Vital signs: Vital Signs Temperature 98.0 F 03/09/23 20:52 Pulse Rate 118 H 03/09/23 21:38 Respiratory Rate 16 03/09/23 21:38 Blood Pressure 165/88 03/09/23 21:38 Pulse Oximetry 94 03/09/23 21:38 Oxygen Delivery Me thod Room Air 03/09/23 21:38 MDM - Psych Medical Decision Making Patient presents here with depression she had a suicidal threat last night she voluntarily want to get help on screening labs she is in mild DKA with an anion gap I spoke to hospitalist will admit at this time for management of her DKA also spoke to psychiatrist Medical Records I reviewed the patient's medical records. Lab Data I reviewed the patient's lab results. 03/09/23 21:08 03/09/23 21:08 Laboratory Results WBC 13.69 10^3/uL (3.29-11.43) H 03/09/23 21:08 RBC 5.12 10^6/uL (3.85-5.65) 03/09/23 21:08 Hgb 16.10 g/dL (11.27-16.99) 03/09/23 21:08 Hct 47.9 % (36-47) H 03/09/23 21:08 MCV 93.6 fl (85-98) 03/09/23 21:08 MCH 31.4 pg (27-33) 03/09/23 21:08 MCHC 33.6 g/dL (30-55) 03/09/23 21:08 RDW 12.0 % (12.1-15.1) L 03/09/23 21:08 Plt Count 246 10^3/cmm (157-399) 03/09/23 21:08 MPV 9.9 fL (7.4-10.4) 03/09/23 21:08 Neut % (Auto) 58.9 % 03/09/23 21:08 Lymph % (Auto) 34.0 % 03/09/23 21:08 Gilmer % (Auto) 4.2 % 03/09/23 21:08 Eos % (Auto) 1.9 % 03/09/23 21:08 Baso % (Auto) 0.5 % 03/09/23 21:08 Neut # (Auto) 8.06 10^3/uL (1.8-7.7) H 03/09/23 21:08 Lymph # (Auto) 4.7 10^3/uL (0.8-4.8) 03/09/23 21:08 Gilmer # (Auto) 0.6 10^3/uL (0.2-0.9) 03/09/23 21:08 Eos # (Auto) 0.3 10^3/uL (0.0-0.8) 03/09/23 21:08 Baso # (Auto) 0.1 10^3/uL (0.0-0.1) 03/09/23 21:08 Nucleated RBC % (auto) 0 % 03/09/23 21:08 Nucleated RBCs # 0.0 /100WBC 03/09/23 21:08 Specimen Type Arterial 03/09/23 21:47 Sample Site Radial, right 03/09/23 21:47 ABG pH 7.34 (7.35-7.45) L 03/09/23 21:47 ABG pCO2 25.0 mmHg (35-45) L 03/09/23 21:47 ABG pO2 94.1 mmHg (80.0-100.0) 03/09/23 21:47 ABG HCO3 13.5 mmol/L (22-26) L 03/09/23 21:47 ABG Base Excess -10.3 mmol/L (-2.0-2.0) L 03/09/23 21:47 Dwight Test Pos 03/09/23 21:47 Hematocrit 47.8 % (37-47) H 03/09/23 21:47 O2 Delivery Device Room air 03/09/23 21:47 Heater Tender ID [email or web address] 03/09/23 21:47 Sodium 133 mmol/L (136-145) L 03/09/23 21:08 Potassium 4.1 mmol/L (3.5-5.1) 03/09/23 21:08 Chloride 101 mmol/L (98-107) 03/09/23 21:08 Carbon Dioxide 11 mmol/L (22-29) L 03/09/23 21:08 Anion Gap 25.1 (5-19) H 03/09/23 21:08 BUN 12 mg/dL (6-20) 03/09/23 21:08 Creatinine 0.4 mg/dL (0.5-0.9) L 03/09/23 21:08 GFR Calculation 176.8 mL/min (90-130) H 03/09/23 21:08 Glucose 328 mg/dL (65-115) H 03/09/23 21:08 POC Glucose 313 mg/dL (70-110) H 03/09/23 20:56 Calculated Osmolality 289 mOsm/kg (285-295) 03/09/23 21:08 Calcium 9.4 mg/dL (8.5-10.5) 03/09/23 21:08 Total Bilirubin 0.6 mg/dL (0.15-1.2) 03/09/23 21:08 AST 12 U/L (0-32) 03/09/23 21:08 ALT 17 U/L (0-33) 03/09/23 21:08 Alkaline Phosphatase 126 U/L (35-105) H 03/09/23 21:08 Total Protein 8.1 g/dL (6.6-8.7) 03/09/23 21:08 Albumin 4.3 g/dL (3.5-5.2) 03/09/23 21:08 Globulin 3.8 g/dL (1.3-4.6) 03/09/23 21:08 Salicylates 0.7 mg/dL (3-10) L 03/09/23 21:08 Acetaminophen < 5.0 ug/mL (10-30) L 03/09/23 21:08 Ethyl Alcohol < 10 mg/dL (0-10) 03/09/23 21:08 Serum Ketones Positive (Negative) H 03/09/23 21:08 No radiology studies performed this visit Discharge Plan Discharge Patient Disposition: Admitted As Inpatient Clinical Impression: Depression, Diabetes mellitus type 1.5, managed as type 1, DKA (diabetic ketoacidosis) Condition: Stable Coding Level of Care Code ED Storage And Backup Administrator for Mario Johnson
[2023-03-09 20:59] LABS: Glucose Point of Care 313 mg/dL (70-110)
[2023-03-09 21:13] LABS: Basophils # 0.1 10^3/uL (0.0-0.1); Basophils % 0.5 %; Eosinophils # 0.3 10^3/uL (0.0-0.8); Eosinophils % 1.9 %; Hematocrit 47.9 % (36-47); Lymphocytes # 4.7 10^3/uL (0.8-4.8); Mean Corpuscular HGB Conc 33.6 g/dL (30-55); Mean Corpuscular Hemoglobin 31.4 pg (27-33); Mean Corpuscular Volume 93.6 fl (85-98); Mean Platelet Volume 9.9 fL (7.4-10.4); Monocytes # 0.6 10^3/uL (0.2-0.9); Monocytes % 4.2 %; Neutrophils # 8.06 10^3/uL (1.8-7.7); Neutrophils % 58.9 %; Nucleated Red Blood Cells % 0 %; Platelet Count 246 10^3/cmm (157-399); Red Blood Count 5.12 10^6/uL (3.85-5.65); White Blood Count 13.69 10^3/uL (3.29-11.43)
[2023-03-09] MEDS: insulin nph human 100 units/1 mL 8 UNIT SUBCUT (21:28)
[2023-03-09] MEDS: metoprolol tartrate 25 mg Tablet PO (21:28)
[2023-03-09] MEDS: LORazepam 1 mg Tablet PO (21:28)
[2023-03-09 21:33] LABS: Alanine Aminotransferase 17 U/L (0-33); Albumin Level 4.3 g/dL (3.5-5.2); Alkaline Phosphatase 126 U/L (35-105); Anion Gap 25.1 (5-19); Aspartate Amino Transferase 12 U/L (0-32); Blood Urea Nitrogen 12 mg/dL (6-20); Calcium 9.4 mg/dL (8.5-10.5); Carbon Dioxide 11 mmol/L (22-29); Chloride 101 mmol/L (98-107); Globulin 3.8 g/dL (1.3-4.6); Glomerular Filtration Rate 176.8 mL/min (90-130); Glucose 328 mg/dL (65-115); Osmolality Calculated 289 mOsm/kg (285-295); Potassium 4.1 mmol/L (3.5-5.1); Salicylate 0.7 mg/dL (3-10); Sodium 133 mmol/L (136-145); Total Bilirubin 0.6 mg/dL (0.15-1.2); Total Protein 8.1 g/dL (6.6-8.7)
[2023-03-09 21:34] LABS: Acetaminophen < 5.0 ug/mL (10-30); Alcohol Level < 10 mg/dL (0-10)
--- NOTE | 2023-03-09 21:34 | PC.NURSE ---
Dr Langford acknowledged that it would be okay for family to say good-bye to patient. Boyfriend took patient's bag and purse back home with him, per patient's request.
[2023-03-09 21:46] LABS: Ketone (Acetest) Serum Positive (Negative)
[2023-03-09 21:58] LABS: ABG PH Result 7.34 (7.35-7.45); Arterial Blood Gas Hematocrit 47.8 % (37-47); Base Excess ABG -10.3 mmol/L (-2.0-2.0); Blood Gas Allen Test Pos; Blood Gas Sample Site Radial, right; Blood Gas Sample Type Arterial; HCO3 ABG 13.5 mmol/L (22-26); Oxygen Device ROOM AIR; PO2 ABG 94.1 mmHg (80.0-100.0)
[2023-03-09] MEDS: sodium chloride 0.9% 1,000 ML 999 ML IV (22:46)
[2023-03-09 22:47] LABS: HCG Qualitative Urine. Negative (Negative)
[2023-03-09 22:55] LABS: Amphetamines Screen Urine Negative (Negative); Barbiturates Screen Urine Negative (Negative); Benzodiazepines Screen Urine Negative (Negative); Cocaine Screen Urine Negative (Negative); Opiate Screen Urine Negative (Negative); PCP Screen Urine Negative (Negative); THC Screen Urine Negative (Negative)
--- NOTE | 2023-03-09 22:57 | PC.NURSE ---
Report called to ROBSON Gilliam in ICU. All questions and concerns addressed at time of report.
--- NOTE | 2023-03-09 23:04 | P.HP_ITS ---
Providers/Chief Complaint Admitting Physician: Tyler Gaytan Primary Care Provider: Magy Chavez DO Chief Complaint: boyfriend wants patient to go to stress unit History of Present Illness Eliana Rider is a 42 year old female who came in due to worsening depression, rec ently was upset and expressed that she may try to end her life with overdose of medication, came in seeking additional evaluation by psychiatry, was going to be voluntarily admitted to neuropsychiatric unit, however, also found to have metabolic acidosis, DKA. She states that she has had DKA previously. She states that recently her insulin dose was adjusted by her primary provider up, but she does not remember her usual doses. States that her life partner usually helps her with managing her diabetes. She is recently getting over bronchitis. She also states had treatment for a yeast infection with improvement in symptoms. Review of Systems Const: Denies: fever(s), chills, body aches or malaise ENMT: Denies: throat pain Card: Denies: chest pain, edema, pre-syncope or dyspnea on exertion Resp: Denies: dyspnea, productive cough, change in phlegm color or hemoptysis GI: Denies: abdominal pain, nausea, vomiting, diarrhea, constipation, hematochezia or melena : Denies: flank pain, urinary frequency or hematuria Musc: Denies: back pain, joint swelling or joint redness Skin/Breast: Denies: rash or new lesions Neuro: Denies: headache(s), numbness in extremities, weakness in extremities, dizziness, confusion or seizure-like activity Psych: Reports: depression Medications/Allergies Home Medications Medication Instructions Recorded Confirmed Last Taken Type albuterol sulfate 90 mcg/actuation 2 puff inhalation Q6H PRN 02/29/20 02/13/23 Unknown Rx aerosol inhaler (ProAir HFA) shortness of breath or wheezing #1 ea acetaminophen 500 mg tablet 1,000 mg PO Q4H PRN Pain 08/29/21 02/13/23 Unknown History blood-glucose sensor (Dexcom G6 #3 ea 09/08/21 02/13/23 Unknown Rx Sensor device) insulin syringe-needle U-100 1 mL #100 ea 09/08/21 02/13/23 Unknown Rx 25 x 1 (BD Insulin Syringe) glucose 4 gram chewable tablet 4 g PO Q15M PRN hypoglycemia #20 09/24/21 02/13/23 Unknown Rx (Dex4 Glucose Pouch Pack) tabs rizatriptan 10 mg tablet (Maxalt) 10 mg PO Q2H PRN migraine headache 09/24/21 02/13/23 Unknown Rx #10 tabs blood-glucose meter,continuous #1 ea 09/26/21 02/13/23 Unknown Rx (Dexcom G6 Customer Marketing Intern) insulin aspart U-100 100 unit/mL 18 unit (0.18 mL) SUBCUT TID #15 mL 09/30/21 02/13/23 Unknown Rx (3 mL) subcutaneous pen (Novolog FlexPen U-100 Insulin aspart) insulin glargine 100 unit/mL (3 40 unit (0.4 mL) SUBCUT BID 30 10/14/21 02/13/23 Unknown Rx mL) subcutaneous pen (Lantus days #24 mL Solostar U-100 Insulin) baclofen 10 mg tablet 10 mg PO TID back pain #15 tabs 12/01/21 02/13/23 Unknown Rx blood-glucose transmitter (Dexcom #1 ea 04/08/22 02/13/23 Unknown Rx G6 Transmitter device) medroxyprogesterone 150 mg/mL 150 mg IM Q90D #1 mL 04/08/22 02/13/23 Unknown Rx intramuscular syringe (Depo-Provera) Allergies Allergy/AdvReac Type Severity Reaction Status Date / Time adhesive tape Allergy rash Verified 02/13/23 11:42 PFSH Acute PFSH: Medical History Asthma Blood type A- 02/20/2019: Blood type: A NEGATIVE. Depression Headache History of closed head injury History of migraine headaches History of syphilis (~08/2016) Diagnosed and treated for syphilis in August 2016. Reports having a low level RPR since that time. Being followed by [facility]. Hyperlipidemia Hypertension Methamphetamine use Obesity, morbid, BMI 40.0-49.9 PTSD (post-traumatic stress disorder) Rubella non-immune status, antepartum Surgical History S/P section 07/25/2019- [facility] [place], [place] S/P cholecystectomy (~1999) Laparoscopic. Performed in [place], [place]. Age 19 S/P dilation and curettage (12/01/15) Diagnosis: Abnormal endometrial lining. Performed by Dr. Lechuga at [facility] in [place], [place]. Pathology: chronic endometritis S/P T&A (status post tonsillectomy and adenoidectomy) (~1986) Performed in [place], [place]. Age 6 S/P tubal ligation 07/05/2019- performed with section at [facility] Status post surgery (~1985) Reattachment of amputated right fourth finger. Performed in [place], [place]. Age 5. Family History Mother Hypertension CHF (congestive heart failure) Grandmother Hypertension maternal Diabetes Heart disease Stroke Maternal great Mitral valve disease Grandfather Diabetes maternal Heart disease Hypercholesteremia Stroke Social History Smoking and tobacco/nicotine status: never used tobacco/nicotine Quit status (tobacco/nicotine): has quit using Alcohol intake: current Alcohol intake frequency: holidays/special occasions only Alcohol type: wine Substance/Drug Use: former Date of last use: 2008 cocaine, no use since 2009, meth use...no use since end august. Female Reproductive History: Para: 1 Spontaneous abortions: Yes (1) Vitals/I&O/Wt Last Vital Signs Temp 98.0 F 03/09/23 20:52 Pulse 102 H 03/09/23 22:50 Resp 16 03/09/23 22:50 BP 153/104 03/09/23 22:50 Pulse Ox 96 03/09/23 22:50 O2 Del Method Room Air 03/09/23 22:50 Weight last 48 hrs Weight 107.955 kg Physical Exam Const: COMMON NORMALS: patient oriented x3 and alert GENERAL APPEARANCE: cooperative ORIENTATION/CONSCIOUSNESS: Yes awake HENMT: COMMON NORMALS: oropharynx normal Neck/C-Spine: COMMON NORMALS: no JVD Resp: COMMON NORMALS: normal respiratory effort and clear to auscultation bilaterally AUSCULTATION: clear to auscultation bilaterally Cardio: COMMON NORMALS: no JVD, regular rhythm, S1 normal heart sound present, S2 normal heart sound present and No murmurs present (Cardio) RHYTHM: regular rhythm HEART SOUNDS: S1 normal heart sound present and S2 normal heart sound present GI: COMMON NORMALS: Normal to inspection, nondistended, normoactive bowel sounds present, Soft to palpation and non-tender PALPATION: Yes Soft to palpation Extremity: COMMON NORMALS: no joint enlargement and no pedal edema Neuro: COMMON NORMALS: patient oriented x3 and moves all extremities SENSORIUM/ORIENTATION: Yes alert Skin: COMMON NORMALS: no rashes or lesions noted GENERAL SKIN EXAM: no rashes or lesions noted Data 03/09/23 21:08 03/09/23 21:08 A&P Assessment and plan (1) DKA (diabetic ketoacidosis): Reviewed vitals, CBC, ABG, CMP, UDS. Requested chest x-ray, UA to additionally assess for possible triggers. Her insulin dose was recently adjusted up, seems due to uncontrolled hyperglycemia, possibly contributing factor. States she has history of difficulty with control of her diabetes. Insulin drip, IV fluids. At risk of electro abnormalities, follow-up chemistry requested. Admission to ICU. ER documentation reviewed. Discussed with ER physician. She does not remember her insulin doses. Confirm home medications. (2) Depression: Worsening depression recently with suicidal ideation, psychiatry consulted. Pen ding admission to neuropsychiatric unit for further assessment and management after treatment of DKA. (3) Suicidal ideation: Came in for voluntary admission due to worsening depression recently, pending admission to neuropsychiatric unit after treatment of DKA. Plan Bronchitis: She states she is getting over bronchitis. Will assess with chest x-ray. Breathing treatments as needed. Vulvovaginal candidiasis: Reports getting over recent yeast infection for which she received treatment with symptomatic improvement. Asthma: Not in exacerbation. Albuterol breathing treatments as needed. History of migraine headaches. HLD HTN: Monitor blood pressure. Cardiac diet. Morbid obesity PTSD Remote history of illicit drug use. Attestations Medical Necessity Statement*: Admission of over 2 midnights will be required for assessment management of DKA, worsening depression, suicidal ideation Coding Level of Care Code Critical Care >/= 30 minutes Critical care time (in minutes): 35 The high probability of a clinically significant, sudden or life threatening deterioration, as referenced in this documentation, required my full and direct attention, intervention and personal management. The critical care time shown is in addition to time spent performing any reported separately billable procedures and includes the following: [x] Data and vital sign review and interpretation [x ] Patient assessment, examination and intervention [x] Medication orders and management [x] Patient/Family updates as able [x] Care Coordination and Documentation. Diagnoses DKA (diabetic ketoacidosis) E11.10 Depression F32.9 Suicidal ideation R45.850
--- NOTE | 2023-03-09 23:10 | XRR_ITS ---
PROCEDURE INFORMATION: Exam: XR Chest Exam date and time: 03/10/2023 7:42 AM Age: 42 years old Clinical indication: Other: Dka TECHNIQUE: Imaging protocol: Radiologic exam of the chest. Views: 1 view. COMPARISON: CR XR chest 1V [id number] 01/13/2019 11:13 PM FINDINGS: Lungs: Unremarkable. No consolidation. Pleural spaces: Unremarkable. No pleural effusion. No pneumothorax. Heart/Mediastinum: Unremarkable. No cardiomegaly. Bones/joints: Unremarkable. XR/XR chest 1V portable [id number] IMPRESSION: No acute findings.
[2023-03-09 23:11] LABS: Glucose Point of Care 350 mg/dL (70-110)
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
[2023-03-10] VITALS (100 sets, daily range): BP systolic 86–175; BP diastolic 53–97; PULSE 85–108; RESP 13–36; TEMP 36.4–36.7; O2SAT 92–98
[2023-03-10] MEDS: insulin regular-human 250 UNIT in sodium chloride 0.9% 250 ML 11.11 UNIT IV (00:04)
[2023-03-10] MEDS: sodium chloride 0.9% 1,000 ML 999 ML IV (00:05)
[2023-03-10 01:08] LABS: Anion Gap 18.9 (5-19); Blood Urea Nitrogen 12 mg/dL (6-20); Calcium 8.7 mg/dL (8.5-10.5); Carbon Dioxide 16 mmol/L (22-29); Chloride 104 mmol/L (98-107); Glomerular Filtration Rate 176.8 mL/min (90-130); Glucose 367 mg/dL (65-115); Magnesium 1.8 mg/dL (1.7-2.3); Osmolality Calculated 295 mOsm/kg (285-295); Potassium 3.9 mmol/L (3.5-5.1); Sodium 135 mmol/L (136-145)
[2023-03-10] MEDS: sodium chloride 0.9% 1,000 ML 200 ML IV (01:14)
[2023-03-10] MEDS: pantoprazole DR 40 mg Tablet PO ×2 (01:14→07:52)
[2023-03-10] MEDS: heparin 5,000 unit/mL INJ 1 mL 5000 UNIT SUBCUT ×2 (01:15→12:11)
[2023-03-10 01:20] LABS: Glucose Point of Care 318 mg/dL (70-110)
[2023-03-10] MEDS: dextrose 5%-sod chloride 0.45% 1,000 ML 200 ML IV (02:54)
[2023-03-10] MEDS: D5-NS 0.45% + KCL 20 mEq 20 MEQ/1,000 ML BAG 200 MEQ IV (03:16)
[2023-03-10 03:33] LABS: Glucose Urine UA 4+ (Normal); Protein Urine 1+ (Negative); Urine Appearance Hazy (CLEAR); Urine Color Yellow (Yellow); pH Urine 5 (5-7)
[2023-03-10 03:34] LABS: Add Urine Microscopic? YES; Bacteria Urine 1+ /hpf; Bilirubin Urine Neg (Negative); Blood Urine 3+ (Negative); Ketones Urine 3+ (Negative); Leukocyte Esterase Urine Negative (Negative); Nitrate Urine Negative (Negative); Squamous Epithelial Cell Urine 0-4 /hpf (0-5); Urobilinogen Urine Neg (Negative); WBC Urine 25-40 /hpf (0-5)
[2023-03-10 03:35] LABS: Add Urine Culture? Yes
[2023-03-10 03:40] LABS: Basophils # 0.1 10^3/uL (0.0-0.1); Basophils % 0.4 %; Eosinophils # 0.3 10^3/uL (0.0-0.8); Eosinophils % 2.2 %; Hematocrit 39.3 % (36-47); Lymphocytes # 4.2 10^3/uL (0.8-4.8); Lymphocytes % 37.1 %; Mean Corpuscular HGB Conc 34.6 g/dL (30-55); Mean Corpuscular Hemoglobin 31.6 pg (27-33); Mean Corpuscular Volume 91.4 fl (85-98); Mean Platelet Volume 9.7 fL (7.4-10.4); Monocytes # 0.6 10^3/uL (0.2-0.9); Monocytes % 5.4 %; Neutrophils % 54.6 %; Nucleated Red Blood Cells % 0 %; Platelet Count 217 10^3/cmm (157-399); Red Cell Distribution Width 12.1 % (12.1-15.1)
[2023-03-10 03:54] LABS: Glucose Point of Care 233 mg/dL (70-110)
[2023-03-10 03:54] LABS: Glucose Point of Care 231 mg/dL (70-110)
[2023-03-10 04:04] LABS: Alanine Aminotransferase 15 U/L (0-33); Albumin Level 3.5 g/dL (3.5-5.2); Alkaline Phosphatase 96 U/L (35-105); Aspartate Amino Transferase 11 U/L (0-32); Chloride 109 mmol/L (98-107); Glucose 240 mg/dL (65-115); Potassium 3.2 mmol/L (3.5-5.1); Sodium 137 mmol/L (136-145)
[2023-03-10 04:13] LABS: Glucose Point of Care 221 mg/dL (70-110)
[2023-03-10 04:18] LABS: Anion Gap 13.2 (5-19); Blood Urea Nitrogen 11 mg/dL (6-20); Calcium 8.7 mg/dL (8.5-10.5); Carbon Dioxide 18 mmol/L (22-29); Globulin 2.7 g/dL (1.3-4.6); Glomerular Filtration Rate 176.8 mL/min (90-130); Magnesium 1.8 mg/dL (1.7-2.3); Osmolality Calculated 291 mOsm/kg (285-295); Phosphorus 2.3 mg/dL (2.5-4.5); Total Bilirubin 0.2 mg/dL (0.15-1.2); Total Protein 6.2 g/dL (6.6-8.7)
[2023-03-10] MEDS: lidocaine 1% 5 ML in potassium chloride premix 100 ML 26.25 ML IV (05:13)
[2023-03-10 06:03] LABS: Glucose Point of Care 196 mg/dL (70-110)
[2023-03-10] MEDS: insulin glargine 100 units/1 mL 50 UNIT SUBCUT ×2 (07:44→18:42)
[2023-03-10 07:48] LABS: Anion Gap 16.1 (5-19); Blood Urea Nitrogen 12 mg/dL (6-20); Calcium 8.5 mg/dL (8.5-10.5); Carbon Dioxide 16 mmol/L (22-29); Chloride 107 mmol/L (98-107); Glomerular Filtration Rate 176.8 mL/min (90-130); Glucose 315 mg/dL (65-115); Osmolality Calculated 292 mOsm/kg (285-295); Potassium 4.1 mmol/L (3.5-5.1); Sodium 135 mmol/L (136-145)
[2023-03-10 07:51] LABS: Glucose Point of Care 322 mg/dL (70-110)
[2023-03-10] MEDS: baclofen 10 mg Tablet PO ×3 (07:52→21:05)
[2023-03-10] MEDS: insulin lispro 100 unit/1 mL SUBCUT ×4 (07:52→21:05)
--- NOTE | 2023-03-10 08:44 | PM.PN ---
Subjective Subjective: Patient endorses good appetite. Denies fevers, chills, nausea or emesis. Report improving cough in the setting of recovering bronchitis. Discussed clear chest x-ray. AG closed on most recent labs. Patient reports history of prior DKA. Notes her last A1c was around 13. Medications: Reviewed: Yes Vitals/I&O/Wt Last Vital Signs Temp 98.1 F 03/10/23 08:24 Pulse 91 03/10/23 07:48 Resp 16 03/10/23 07:48 BP 86/53 03/10/23 04:20 Pulse Ox 96 03/10/23 07:48 O2 Del Method Room Air 03/10/23 07:48 03/09/23 03/10/23 03/10/23 22:59 06:59 14:59 Intake Total 1818.632 / 1818.632 240 / 240 Output Total 300 / 300 Balance 1518.632 / 1518.632 240 / 240 Weight last 48 hrs Weight 109.769 kg Weight 107.955 kg Physical Exam Narrative: General: Patient is awake and alert. Laying in bed. Head: Normocephalic. Atraumatic. EOM intact. Neck: No JVD. Cardiovascular: RRR. No gallops. No murmurs. Lungs: Clear to auscultation, no use of accessory muscles, no crackles or wheezes. Skin: No jaundice. No rashes. Abdomen: Normal bowel sounds, abdomen soft and nontender. Extremities: No cyanosis or clubbing. Musculoskeletal: No erythematous joints. Neurological: Moves all 4 extremities. No myoclonus. Data 03/10/23 03:29 03/10/23 11:06 A&P Assessment and plan (1) DKA (diabetic ketoacidosis): A/w diabetes mellitus, uncontrolled w/ hyperglycemia Gap is closing Start Lantus Start diet Start meal time lispro Start SSI Discontinue IV drip Overlap ~2 hours Monitor electrolytes, replace as needed CXR negative for infiltrate (2) Suicidal ideation: Suicide precautions Psych consult (3) Depression: Psych consult Plan DVT: Heparin Code: Full Attestations Medical Necessity Statement*: Patient requires ongoing hospitalization for treatment of DKA with insulin conversion, electrolyte monitoring, and psychiatry evaluation. Critical Care Time: The high probability of a clinically significant, sudden or life threatening deterioration of the patient's endocrine system(s) required my full and direct attention, intervention and personal management. The critical care time is as shown. This time is in addition to time spent performing any reported procedures but includes the following: [x] Data and vital sign review and interpretation [x] Patient assessment, examination and intervention [x] Documentation [x] Medication orders and management Critical Care Time (min): 35 Coding Level of Care Code Acute Code for Chg Fwd Diagnoses DKA (diabetic ketoacidosis) E11.10 Suicidal ideation R45.851 Depression F32.9
[2023-03-10 11:48] LABS: Anion Gap 16.6 (5-19); Blood Urea Nitrogen 12 mg/dL (6-20); Carbon Dioxide 17 mmol/L (22-29); Chloride 108 mmol/L (98-107); Glomerular Filtration Rate 110.7 mL/min (90-130); Glucose 402 mg/dL (65-115); Osmolality Calculated 301 mOsm/kg (285-295); Potassium 4.6 mmol/L (3.5-5.1); Sodium 137 mmol/L (136-145)
[2023-03-10 12:18] LABS: Glucose Point of Care 391 mg/dL (70-110)
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
--- NOTE | 2023-03-10 14:31 | PC.NURSE ---
Patient transferred to NPU
[2023-03-10 17:08] LABS: Glucose Point of Care 327 mg/dL (70-110)
[2023-03-10] MEDS: insulin lispro 100 unit/1 mL 22 UNIT SUBCUT (17:34)
[2023-03-10 21:01] LABS: Glucose Point of Care 385 mg/dL (70-110)
[2023-03-11 06:00] VITALS: BP 145/90; PULSE 92; RESP 18; TEMP 36.9; O2SAT 95
[2023-03-11 06:26] LABS: Glucose Point of Care 318 mg/dL (70-110)
[2023-03-11] MEDS: acetaminophen 325 mg Tablet 650 MG PO ×2 (06:38→13:24)
[2023-03-11] MEDS: insulin lispro 100 unit/1 mL 22 UNIT SUBCUT (06:38)
[2023-03-11] MEDS: pantoprazole DR 40 mg Tablet PO (08:03)
[2023-03-11] MEDS: fluoxetine 20 mg Capsule PO (08:03)
[2023-03-11] MEDS: baclofen 10 mg Tablet PO ×3 (08:03→20:15)
[2023-03-11 08:06] LABS: Glucose Point of Care 285 mg/dL (70-110)
[2023-03-11] MEDS: insulin lispro 100 unit/1 mL SUBCUT ×4 (08:14→20:15)
[2023-03-11] MEDS: insulin lispro 100 unit/1 mL 26 UNIT SUBCUT ×2 (09:59→17:32)
[2023-03-11] MEDS: insulin glargine 100 units/1 mL 60 UNIT SUBCUT ×2 (10:00→17:31)
[2023-03-11 11:57] LABS: Glucose Point of Care 307 mg/dL (70-110)
[2023-03-11] MEDS: hyDROXYzine 25 mg Capsule 50 MG PO (13:33)
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
[2023-03-11 14:00] VITALS: BP 136/86; PULSE 111; RESP 16; TEMP 36.9; O2SAT 98
[2023-03-11 19:43] VITALS: BP 129/81; PULSE 98; RESP 16; TEMP 36.5; O2SAT 98
[2023-03-11 20:15] LABS: Glucose Point of Care 396 mg/dL (70-110)
[2023-03-11] MEDS: prazosin 1 mg Capsule PO (20:15)
[2023-03-12] MEDS: acetaminophen 325 mg Tablet 650 MG PO (05:01)
[2023-03-12 06:00] VITALS: BP 122/79; PULSE 92; RESP 13; TEMP 36.5; O2SAT 97
[2023-03-12 06:22] LABS: Glucose Point of Care 270 mg/dL (70-110)
[2023-03-12] MEDS: insulin lispro 100 unit/1 mL 26 UNIT SUBCUT (06:27)
[2023-03-12 08:01] LABS: Glucose Point of Care 210 mg/dL (70-110)
[2023-03-12] MEDS: insulin glargine 100 units/1 mL 60 UNIT SUBCUT ×2 (08:27→17:35)
[2023-03-12] MEDS: insulin lispro 100 unit/1 mL SUBCUT ×4 (08:27→20:27)
[2023-03-12] MEDS: baclofen 10 mg Tablet PO ×3 (08:28→20:27)
[2023-03-12] MEDS: fluoxetine 20 mg Capsule PO (08:28)
[2023-03-12] MEDS: pantoprazole DR 40 mg Tablet PO (08:28)
[2023-03-12 11:25] LABS: Glucose Point of Care 334 mg/dL (70-110)
[2023-03-12] MEDS: insulin lispro 100 unit/1 mL 32 UNIT SUBCUT ×2 (11:26→17:35)
--- NOTE | 2023-03-12 12:54 | P.PN_ITS ---
Subjective Subjective: Patient reports she is feeling better. She denies symptoms of relative hypoglycemia. She has plans to see a commercial helicopter pilot but referral was sent to [facility] in [place]. She is interested in endocrine locally. She agrees to [facility] endocrine referral. Discussed she would likely benefit from concentrated insulin in the future. Medications: Reviewed: Yes Vitals/I&O/Wt Last Vital Signs Temp 97.7 F 03/12/23 06:00 Pulse 92 03/12/23 06:00 Resp 13 03/12/23 06:00 BP 122/79 03/12/23 06:00 Pulse Ox 97 03/12/23 06:00 O2 Del Method Room Air 03/12/23 06:00 03/11/23 03/12/23 03/12/23 22:59 06:59 14:59 Intake Total 360 / 720 Output Total 300 / 600 Balance 60 / 120 Physical Exam Narrative: General: Patient is awake and alert. Sitting in chair. Pleasant and conversational. Head: Normocephalic. Atraumatic. EOM intact. Neck: No JVD. Extremities: No cyanosis or clubbing. Musculoskeletal: No erythematous joints. Neurological: Moves all 4 extremities. Data 03/10/23 03:29 03/10/23 11:06 Micro: Microbiology 03/09/23 22:40 Urine Culture - Final Urine,Clean Catch A&P Assessment and plan (1) Diabetes mellitus type 1.5, managed as type 1: Uncontrolled w/ hyperglycemia Glycemic control slightly improved, still poorly controlled overall; she would benefit from establishing with commercial helicopter pilot, referral placed Denies symptoms of relative hypoglycemia Insulin doses adjusted (2) Suicidal ideation: Per primary (3) Depression: Per primary Attestations Medical Necessity Statement*: Per primary Coding Level of Care Code Acute Code for [facility] Fwd Diagnoses Diabetes mellitus type 1.5, managed as type 1 E13.9 Suicidal ideation R45.851 Depression F32.9
[2023-03-12 14:00] VITALS: BP 117/73; PULSE 111; RESP 16; TEMP 36.8; O2SAT 97
[2023-03-12 17:19] LABS: Glucose Point of Care 231 mg/dL (70-110)
--- NOTE | 2023-03-12 17:47 | W.PM.NPUPNS ---
Subjective NPU Subjective: Patient presented today reporting that she is feeling better with the medication on board. She is feeling more optimistic about facing her issues at home. We discussed taking it a day at a time but tentatively discussed the possibility of discharge in the morning. She denies any side effects to the medication and reports she is sleeping better with the prazosin. Mental Status Exam MSE Comments: This is an obese, white female, in hospital scrubs, with adequate grooming and eye contact. No abnormal movements, except for mild psychomotor retardation. Cooperative with exam in mild distress. Speech was normal rate and volume. Mood described as a little better; affect congruent. Thought process, organized. Thought content: patient denied any suicidal or homicidal ideation, there were no delusions reported or noted, patient denied any auditory or visual hallucinations. Attention, concentration, and memory appeared intact, but none were formally tested. Alert and oriented times three. Insight and judgment appear limited. Impulse control is limited. Vitals/I&O/Wt Last Vital Signs Temp 98.3 F 03/12/23 14:00 Pulse 111 H 03/12/23 14:00 Resp 16 03/12/23 14:00 BP 117/73 03/12/23 14:00 Pulse Ox 97 03/12/23 14:00 O2 Del Method Room Air 03/12/23 14:00 03/12/23 03/12/23 03/12/23 06:59 14:59 22:59 Intake Total 360 / 360 Output Total 300 / 300 Balance 60 / 60 Data NPU 03/10/23 03:29 03/10/23 11:06 Micro: Microbiology 03/09/23 22:40 Urine Culture - Final Urine,Clean Catch Microbiology 03/09/23 22:40 Urine,Clean Catch Urine Culture - Final A&P Assessment and plan (1) Suicidal ideation: (2) DKA (diabetic ketoacidosis): (3) Diabetes mellitus with neuropathy: (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 1.? Started Prozac 20 mg.? 2.? Started Prazosin will likely discharge in 1 to 2 mg at bedtime.. 3.? Encourage individual, group, and milieu therapy. 4.? Continue q-15-minute checks for safety. 5. Appreciate hospitalists input on her blood sugars/diabetes. Involuntary Hold Information 96 Hour Hold: 96 Hour Involuntary Admission: No Attestations NPU Medical Necessity Statement*: Inpatient hospitalization is medically necessary and the clinically appropriate intervention, at this time. We will monitor medications and make changes as indicated. Likely length of stay is 1-3 days. Coding Level of Care Code Acute Code for [facility] Fwd Diagnoses Suicidal ideation R45.851 DKA (diabetic ketoacidosis) E11.10 Diabetes mellitus with neuropathy E11.40 Diabetes mellitus type 1.5, managed as type 1 E13.9 Hyperlipidemia E78.5 Hyperlipidemia type: unspecified Obesity, morbid, BMI 40.0-49.9 E66.01 Major depressive disorder, recurrent F33.9 Anxiety disorder F41.9
[2023-03-12 20:01] VITALS: BP 184/98; PULSE 108; RESP 18; TEMP 36.7; O2SAT 98
[2023-03-12 20:25] LABS: Glucose Point of Care 298 mg/dL (70-110)
[2023-03-12] MEDS: prazosin 1 mg Capsule PO (20:27)
[2023-03-13] MEDS: acetaminophen 325 mg Tablet 650 MG PO (05:14)
[2023-03-13 06:00] VITALS: BP 116/74; PULSE 92; RESP 16; O2SAT 97
[2023-03-13 06:21] LABS: Glucose Point of Care 218 mg/dL (70-110)
[2023-03-13] MEDS: insulin lispro 100 unit/1 mL 32 UNIT SUBCUT ×2 (06:22→11:54)
[2023-03-13] MEDS: pantoprazole DR 40 mg Tablet PO (07:18)
[2023-03-13] MEDS: baclofen 10 mg Tablet PO (07:18)
[2023-03-13] MEDS: fluoxetine 20 mg Capsule PO (07:19)
[2023-03-13 08:01] LABS: Glucose Point of Care 169 mg/dL (70-110)
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
[2023-03-13] MEDS: insulin glargine 100 units/1 mL 60 UNIT SUBCUT (09:13)
[2023-03-13] MEDS: insulin lispro 100 unit/1 mL SUBCUT ×2 (09:13→12:20)
[2023-03-13 10:48] VITALS: BP 116/74; PULSE 92; RESP 16; O2SAT 97
[2023-03-13 12:12] LABS: Glucose Point of Care 354 mg/dL (70-110)
== END 2023-03-13 13:29 | disposition home or self-care (01) | DRG 885 ==
LOC: ER 21:31 → ICU 22:40 → NP 03-10 14:34
PROVIDERS: Admitting Provider Internal Medicine; Emergency Provider Emergency Medicine; PCP Family Medicine; Visit Provider Internal Medicine
DX: F33.2 Major depressive disorder, recurrent severe without psychotic features (principal); E10.10 Type 1 diabetes mellitus with ketoacidosis without coma; Z68.41 Body mass index [BMI] 40.0-44.9, adult; R45.851 Suicidal ideations; J45.909 Unspecified asthma, uncomplicated; E78.5 Hyperlipidemia, unspecified; I10 Essential (primary) hypertension; E66.01 Morbid (severe) obesity due to excess calories; F43.12 Post-traumatic stress disorder, chronic; Z79.4 Long term (current) use of insulin; F41.9 Anxiety disorder, unspecified; Z81.8 Family history of other mental and behavioral disorders; Z81.3 Family history of other psychoactive substance abuse and dependence; Z62.812 Personal history of neglect in childhood; Z62.811 Personal history of psychological abuse in childhood; Z91.410 Personal history of adult physical and sexual abuse
CPT/HCPCS: 36415; 36416; 36600; 71045; 80048; 80053; 80306; 80307; 81001; 81025; 82009; 82803; 82962; 83735; 84100; 85025; 87086; 96372; 97150; 97165; 99285; J1644; J1815; J3480; J7030; J7050; J7799

== ENCOUNTER → 2023-07-15 10:49 | Outpatient (BNVA) | payer MEDICAID, SELFPAY | PROVIDERS: PCP Registered Nurse; Visit Provider Registered Nurse | DX: Z30.9 Encounter for contraceptive management, unspecified (principal); E11.10 Type 2 diabetes mellitus with ketoacidosis without coma; E13.9 Other specified diabetes mellitus without complications; F43.10 Post-traumatic stress disorder, unspecified | CPT/HCPCS: 80053; 80061; 81025; 82043; 83036; 85025 ==

== ENCOUNTER → 2024-01-14 12:02 | Outpatient (BNVA) | payer MEDICAID, SELFPAY ==
[2023-07-20 10:17] VITALS: BP 120/70; BMI 41.8
== END ==
PROVIDERS: PCP Registered Nurse; Visit Provider Registered Nurse
DX: E11.9 Type 2 diabetes mellitus without complications (principal); Z20.2 Contact with and (suspected) exposure to infections with a predominantly sexual mode of transmission
CPT/HCPCS: 80053; 81000; 82607; 83036; 85025; 86592; 87491; 87591

== ENCOUNTER → 2024-02-25 09:17 | Outpatient (BNVA) | payer MEDICAID, SELFPAY ==
[2023-07-20 10:17] VITALS: BP 120/70; BMI 41.8
== END ==
PROVIDERS: PCP Registered Nurse; Visit Provider Thoracic Surgery (Cardiothoracic Vascular Surgery)
DX: I96 Gangrene, not elsewhere classified (principal); T81.31XD Disruption of external operation (surgical) wound, not elsewhere classified, subsequent encounter; Y83.8 Other surgical procedures as the cause of abnormal reaction of the patient, or of later complication, without mention of misadventure at the time of the procedure
CPT/HCPCS: 10060; 97597; 97598; 97606; 99213; A6237; A6250

== ENCOUNTER → 2024-02-29 15:10 | Outpatient (BNVA) | payer MEDICAID, SELFPAY ==
[2023-07-20 10:17] VITALS: BP 120/70; BMI 41.8
== END ==
PROVIDERS: PCP Registered Nurse; Visit Provider Thoracic Surgery (Cardiothoracic Vascular Surgery)
DX: I96 Gangrene, not elsewhere classified (principal); T81.31XD Disruption of external operation (surgical) wound, not elsewhere classified, subsequent encounter; Y83.8 Other surgical procedures as the cause of abnormal reaction of the patient, or of later complication, without mention of misadventure at the time of the procedure; Z09 Encounter for follow-up examination after completed treatment for conditions other than malignant neoplasm
CPT/HCPCS: 97606

== ENCOUNTER → 2024-03-03 10:47 | Outpatient (BNVA) | payer MEDICAID, SELFPAY ==
[2023-07-20 10:17] VITALS: BP 120/70; BMI 41.8
== END ==
PROVIDERS: PCP Registered Nurse; Visit Provider Thoracic Surgery (Cardiothoracic Vascular Surgery)
DX: I96 Gangrene, not elsewhere classified (principal); T81.31XD Disruption of external operation (surgical) wound, not elsewhere classified, subsequent encounter; Y83.8 Other surgical procedures as the cause of abnormal reaction of the patient, or of later complication, without mention of misadventure at the time of the procedure; Z09 Encounter for follow-up examination after completed treatment for conditions other than malignant neoplasm
CPT/HCPCS: 97597; 97598; A6210

== ENCOUNTER → 2024-03-10 09:28 | Outpatient (BNVA) | payer MEDICAID, SELFPAY ==
[2023-07-20 10:17] VITALS: BP 120/70; BMI 41.8
== END ==
PROVIDERS: PCP Registered Nurse; Visit Provider Thoracic Surgery (Cardiothoracic Vascular Surgery)
DX: T81.31XD Disruption of external operation (surgical) wound, not elsewhere classified, subsequent encounter (principal); Y83.8 Other surgical procedures as the cause of abnormal reaction of the patient, or of later complication, without mention of misadventure at the time of the procedure
CPT/HCPCS: 97597

== ENCOUNTER → 2024-03-17 09:36 | Outpatient (BNVA) | payer MEDICAID, SELFPAY ==
[2023-07-20 10:17] VITALS: BP 120/70; BMI 41.8
== END ==
PROVIDERS: PCP Registered Nurse; Visit Provider Thoracic Surgery (Cardiothoracic Vascular Surgery)
DX: T81.31XD Disruption of external operation (surgical) wound, not elsewhere classified, subsequent encounter (principal); Y83.8 Other surgical procedures as the cause of abnormal reaction of the patient, or of later complication, without mention of misadventure at the time of the procedure
CPT/HCPCS: 97597; A6210

== ENCOUNTER → 2024-03-24 09:10 | Outpatient (BNVA) | payer MEDICAID, SELFPAY ==
[2023-07-20 10:17] VITALS: BP 120/70; BMI 41.8
== END ==
PROVIDERS: PCP Registered Nurse; Visit Provider Thoracic Surgery (Cardiothoracic Vascular Surgery)
DX: I96 Gangrene, not elsewhere classified (principal); T81.31XD Disruption of external operation (surgical) wound, not elsewhere classified, subsequent encounter; Y83.8 Other surgical procedures as the cause of abnormal reaction of the patient, or of later complication, without mention of misadventure at the time of the procedure
CPT/HCPCS: 97597

== ENCOUNTER → 2024-04-07 09:19 | Outpatient (BNVA) | payer MEDICAID, SELFPAY ==
[2023-07-20 10:17] VITALS: BP 120/70; BMI 41.8
== END ==
PROVIDERS: PCP Registered Nurse; Visit Provider Thoracic Surgery (Cardiothoracic Vascular Surgery)
DX: T81.31XD Disruption of external operation (surgical) wound, not elsewhere classified, subsequent encounter (principal); Y83.8 Other surgical procedures as the cause of abnormal reaction of the patient, or of later complication, without mention of misadventure at the time of the procedure; Z09 Encounter for follow-up examination after completed treatment for conditions other than malignant neoplasm
CPT/HCPCS: 97597

== ENCOUNTER → 2024-04-18 10:52 | Outpatient (BNVA) | payer MEDICAID, SELFPAY ==
[2023-07-20 10:17] VITALS: BP 120/70; BMI 41.8
== END ==
PROVIDERS: PCP Registered Nurse; Visit Provider Registered Nurse
DX: E11.9 Type 2 diabetes mellitus without complications (principal); E11.40 Type 2 diabetes mellitus with diabetic neuropathy, unspecified; E13.9 Other specified diabetes mellitus without complications; I10 Essential (primary) hypertension; E78.5 Hyperlipidemia, unspecified
CPT/HCPCS: 80048; 83036

== ENCOUNTER → 2024-04-21 09:35 | Outpatient (BNVA) | payer MEDICAID, SELFPAY ==
[2023-07-20 10:17] VITALS: BP 120/70; BMI 41.8
== END ==
PROVIDERS: PCP Registered Nurse
DX: Z09 Encounter for follow-up examination after completed treatment for conditions other than malignant neoplasm (principal); Z87.2 Personal history of diseases of the skin and subcutaneous tissue
CPT/HCPCS: 99212

== ENCOUNTER → 2024-07-19 14:32 | Outpatient (BNVA) | payer MEDICAID, SELFPAY ==
[2023-07-20 10:17] VITALS: BP 120/70; BMI 41.8
== END ==
PROVIDERS: PCP Registered Nurse; Visit Provider Registered Nurse
DX: E13.9 Other specified diabetes mellitus without complications (principal)
CPT/HCPCS: 80053; 80061; 83036; 85025

== ENCOUNTER → 2024-11-28 11:50 | Outpatient (BNVA) | payer MEDICAID, SELFPAY ==
[2023-07-20 10:17] VITALS: BP 120/70; BMI 41.8
== END ==
PROVIDERS: PCP Registered Nurse; Visit Provider Registered Nurse
DX: E11.9 Type 2 diabetes mellitus without complications (principal); N39.0 Urinary tract infection, site not specified
CPT/HCPCS: 80053; 81000; 82607; 83036; 87077; 87086; 87184

== ENCOUNTER → 2025-01-04 10:11 | Outpatient (BNVA) | payer MEDICAID, SELFPAY ==
[2023-07-20 10:17] VITALS: BP 120/70; BMI 41.8
== END ==
PROVIDERS: PCP Registered Nurse; Visit Provider Registered Nurse
DX: E11.9 Type 2 diabetes mellitus without complications (principal)
CPT/HCPCS: 81000

== ENCOUNTER → 2025-01-16 10:15 | Outpatient (BNVA) | payer MEDICAID, SELFPAY ==
[2023-07-20 10:17] VITALS: BP 120/70; BMI 41.8
== END ==
PROVIDERS: PCP Registered Nurse; Visit Provider Registered Nurse
DX: Z01.419 Encounter for gynecological examination (general) (routine) without abnormal findings (principal); N39.0 Urinary tract infection, site not specified
CPT/HCPCS: 81000; 87070; 87077; 87086; 87184; 87205; 87491; 87591; 87624; 87661

== ENCOUNTER 2025-03-01 11:30 | Outpatient (CLI) | payer MEDICAID, SELFPAY ==
[2023-07-20 10:17] VITALS: BP 120/70; BMI 41.8
--- NOTE | 2025-03-01 12:00 | MM_ITS ---
WS: [id number] BILATERAL SCREENING DIGITAL TOMOSYNTHESIS MAMMOGRAM WITH CAD HISTORY: Z12.39 - Encounter for other screening for malignant neop... COMPARISON: None available. Bilateral CC and MLO views with tomosynthesis and synthetic mammography submitted. Computer aided detection analyzed. Breast composition: There are scattered areas of fibroglandular density. No suspicious masses, microcalcifications or architectural distortion. Benign calcification in the anterior RIGHT breast. Prominent vein in the superior LEFT breast. MM/MM scr BI tomosynthesis [id number] IMPRESSION: BI-RADS: 2 - Benign. FOLLOW UP: 1 Year Follow-up
== END 2025-03-01 11:31 | disposition home or self-care (01) ==
LOC: MOBLMAM 11:31
PROVIDERS: PCP Registered Nurse; Visit Provider Registered Nurse
DX: Z12.31 Encounter for screening mammogram for malignant neoplasm of breast (principal); R92.323 Mammographic fibroglandular density, bilateral breasts; R92.1 Mammographic calcification found on diagnostic imaging of breast; N64.89 Other specified disorders of breast
CPT/HCPCS: 77063; 77067

== ENCOUNTER → 2025-04-05 09:18 | Outpatient (BNVA) | payer MEDICAID, SELFPAY ==
[2025-03-09 16:22] VITALS: BP 120/70; BMI 41.8
== END ==
PROVIDERS: PCP Registered Nurse; Visit Provider Registered Nurse
DX: E11.9 Type 2 diabetes mellitus without complications (principal)
CPT/HCPCS: 81000; 83036

== ENCOUNTER → 2025-04-18 08:52 | Outpatient (BNVA) | payer MEDICAID, SELFPAY ==
[2025-03-09 16:22] VITALS: BP 120/70; BMI 41.8
== END ==
PROVIDERS: PCP Registered Nurse; Visit Provider Registered Nurse
DX: N39.0 Urinary tract infection, site not specified (principal)
CPT/HCPCS: 81000; 87077; 87086; 87186